=== PATIENT | male | born 1980 | race Caucasian/White ===

== ENCOUNTER 2023-04-13 13:17 | Emergency (ER) | payer SELFPAY ==
[2023-04-13] VITALS (30 sets, daily range): BP systolic 130–168; BP diastolic 88–93; PULSE 70–85; RESP 12–30; TEMP 36.5; O2SAT 95–98; BMI 30.1
--- NOTE | 2023-04-13 13:36 | XR_ITS ---
The [address] [address] Patient Name: RICK BAY MRN: [id number] date: 1980 Sex: M Assigned Patient Location: ER Current Patient Location: ED.MAIN Accession/Order Number: [id number] Exam Date: 04/13/2023 13:42 Report Date: 04/13/2023 14:26 At the request of: CECILLE COHEN Procedure: XR chest 1V EXAMINATION: XR chest 1V HISTORY: CP ; chest pain COMPARISON: XR chest 11/05/2012 FINDINGS: LUNGS: 9 mm opacity within lateral left lung base suspected represent a nodule. Expanded lungs. VASCULATURE: No increased pulmonary vasculature. PLEURA: No pneumothorax, effusion, or pleural thickening. CARDIAC: No cardiomegaly or cardiac silhouette abnormality. MEDIASTINUM: No visible mass or adenopathy. BONES: No fracture or visible bone lesion. OTHER: Negative. XR/XR chest 1V IMPRESSION: 1. There is a 9 mm nodule versus focal infiltrate versus nipple shadow artifact within lateral left lung base. Consider follow-up PA/lateral chest x-ray with full lung expansion. If finding persists consider CT chest for further evaluation. 2. No convincing acute cardiopulmonary process. Electronically authenticated by: FABIEN BATES Date: 04/13/2023 14:26
--- NOTE | 2023-04-13 13:36 | ECG_ITS ---
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
--- NOTE | 2023-04-13 13:37 | ED_ITS ---
HPI - Chest Pain General Chief Complaint: Chest Pain Stated Complaint: Chest pain Time Seen by Provider: 04/13/23 13:33 Source: patient Mode of arrival: walk-in Limitations: no limitations History of Present Illness HPI narrative: 42 year old male presents to the ED for left-sided chest pain. 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 It has been intermittent, lasts 1-2 minutes. States his left arm became numb with one of the episodes. Denies fever, chills, dizziness, weakness. Denies SOB. The pain is worse with inspiration. Denies neck and back pain. Quality: Reports tightness Exacerbating factors: Reports inspiration and palpation Context: Denies recent illness, recent surgery, recent immobilization or recent travel Risk Factors Coronary artery disease risk factors: smoking history Related Data Allergies Allergy/AdvReac Type Severity Reaction Status Date / Time No Known Drug Allergies Allergy Verified 04/13/23 13:27 Review of Systems ROS Constitutional Denies: fever or chills Ears, nose, mouth, and throat Denies: throat pain or neck pain Cardiovascular Reports: chest pain; Denies: palpitations, edema, swelling of feet/ankles, lightheadedness or shortness of breath with exertion Respiratory Denies: shortness of breath or cough Gastrointestinal Denies: abdominal pain, nausea, vomiting or diarrhea Musculoskeletal Denies: back pain or neck pain Integumentary/Breast Denies: rash or itching Neurological Reports: numbness in extremities; Denies: headache, weakness in extremities, lack of coordination, dizziness, vertigo, confusion, slurred speech or difficulty communicating thoughts PFSH PFSH Social History Smoking status: Current every day smoker Exam Constitutional Vital Signs, click to edit/add: Last Vital Signs Temp 97.7 F 04/13/23 13:24 Pulse 71 04/13/23 15:40 Resp 15 04/13/23 15:40 BP 130/91 04/13/23 15:00 Pulse Ox 97 04/13/23 15:40 O2 Del Method Room Air 04/13/23 13:24 HENMT Nose: external nose normal External auditory canal: EACs normal Mouth: oral and palatal mucosa normal Eye Common normals: conjunctivae normal and no scleral icterus Neck & C-Spine Common normals: supple Chest Common normals: inspection of chest normal; palpation of chest abnormal (Mild tenderness to left upper chest.) Chest: symmetrical chest wall rise Respiratory Common normals: normal respiratory effort, no retractions, no use of accessory muscles and clear to auscultation bilaterally Effort & inspection: able to speak in complete sentences and symmetric chest movement Cardio Common normals: regular rate and regular rhythm Back & Pelvis Thoracic spine/upper back: normal to inspection Neuro Common normals: oriented x3 Sensorium/orientation: awake and alert Speech: speech normal Motor exam: strength 5/5 throughout Course Course Hospital Course: HEART Score for Major Cardiac Events from [email or web address] on 04/13/2023 All calculations should be rechecked by clinician prior to use RESULT SUMMARY: 2 points Low Score (0-3 points) Risk of MACE of 0.9-1.7%. If troponin is positive, many experts recommend further workup and admission even with a low HEART Score. INPUTS: History ?> 0 = Slightly suspicious EKG ?> 0 = Normal Age ?> 0 = <45 Risk factors ?> 1 = 1-2 risk factors Initial troponin ?> 1 = 1?3? normal limit Vital Signs Vital signs: Vital Signs Temperature 97.7 F 04/13/23 13:24 Pulse Rate 81 04/13/23 13:24 Respiratory Rate 20 04/13/23 13:24 Blood Pressure 168/93 H 04/13/23 13:24 Pulse Oximetry 97 04/13/23 13:24 Oxygen Delivery Method Room Air 04/13/23 13:24 Temperature 97.7 F 04/13/23 13:24 Pulse Rate 71 04/13/23 15:40 Respiratory Rate 15 04/13/23 15:40 Blood Pressure 130/91 04/13/23 15:00 Pulse Oximetry 97 04/13/23 15:40 Oxygen Delivery Method Room Air 04/13/23 13:24 MDM - Chest Pain MDM Narrative Medical decision making narrative: EKG showed NSR. Initial troponin was 30.4, repeat 64.8. Findings were discussed with the patient and his family member. He was given 324 mg asa. I spoke with Dr. Rushing; he recommended transfer to [facility] for further evaluation and treatment due to the limited cardiac services available here at [place]. I spoke with Dr. Estes at [facility]. He agreed to accept the patient for transfer to the facility for further evaluation and treatment. The patient was in agreement with the transfer. The patient was started on a Heparin drip with the ACS protocol. Differential Diagnosis Differential diagnosis: Likely stable angina, unstable angina pectoris, atypical chest pain, st elevation myocardial infarction and chest pain Medical Records Data Attestation: I reviewed the patient's medical records. Lab Data Attestation: I reviewed the patient's lab results. Labs: Lab Results 04/13/23 04/13/23 04/13/23 Range/Units 13:36 15:15 17:00 WBC 11.0 (4.0-11.0) 10^3/uL RBC 5.36 (4.70-6.10) 10^6/uL Hgb 16.8 (14.0-18.0) g/dL Hct 47.0 (42.0-54.0) % MCV 87.7 (80.0-94.0) fL MCH 31.3 (25.9-34.0) pg MCHC 35.7 H (29.9-35.2) g/dL RDW 12.7 (11.0-15.0) % Plt Count 260 (150-450) 10^3/uL MPV 9.8 (9.5-13.5) fL Neut % (Auto) 59.2 (43.0-75.0) % Lymph % (Auto) 32.0 (20.5-60.0) % [place] % (Auto) 6.8 (1.7-12.0) % Eos % (Auto) 1.0 (0.9-7.0) % Baso % (Auto) 0.6 (0.2-2.0) % Neut # (Auto) 6.5 (1.4-6.5) 10^3/uL Lymph # (Auto) 3.5 (1.2-3.8) 10^3/uL [place] # (Auto) 0.7 (0.3-0.8) 10^3/uL Eos # (Auto) 0.1 (0.0-0.7) 10^3/uL Baso # (Auto) 0.1 (0.0-0.1) 10^3/uL Abs Immat Gran (auto) 0.04 H (0.00-0.03) 10^3/uL Imm/Tot Granulo (auto) 0.4 (0.0-0.5) % PT 9.9 (9.0-11.6) sec INR 0.93 APTT 29.3 (22.3-36.2) sec Sodium 135 L (136-145) mmol/L Potassium 3.7 (3.5-5.1) mmol/L Chloride 98 (98-107) mmol/L Carbon Dioxide 27.2 (21.0-32.0) mmol/L Anion Gap 13.5 BUN 8.0 (7.0-18.0) mg/dL Creatinine 0.82 (0.70-1.30) mg/dL Est GFR ( Amer) >60 (>=60) Est GFR (Non-Af Amer) >60 (>=60) BUN/Creatinine Ratio 9.8 Glucose 244 H (74-106) mg/dL Calcium 8.8 (8.5-10.1) mg/dL Troponin I High Sens 30.4 64.8 83.7 H* (4.0-76.1) pg/mL ECG Data Attestation: ?I have reviewed the pertinent ECG results. (EKG was reviewed by the attending physician. It showed sinus rhythm at a rate of 74. No acute ST segment changes. ) Interpretation: Measurements Intervals [place] Rate: 74 P: 12 MA: 174 QRS: 81 QRSD: 84 T: 21 QT: 368 QTc: 395 Interpretive Statements 1100 Sinus rhythm 9110 normal ECG No previous ECG available for comparison Critical Care Time Critical Care Time Critical Care Time: Yes Total Critical Care Time: 35 Attestation: Due to the high probability of sudden and clinically significant deterioration in the patient's condition he required the highest level of my preparedness to intervene urgently I provided critical care time including documentation time, medication orders and management, reevaluation, vital sign assessment, ordering and reviewing of lab tests, ordering and reviewing of x-rays studies, and admission orders. Discharge Plan Discharge Chief Complaint: Chest Pain Clinical Impression: Elevated troponin, Chest pain Patient Disposition: [facility] Time of Disposition Decision: 17:20 Discharge Location: [facility] Condition: Good Mode of Transportation: EMS
[2023-04-13] MEDS: ASPIRIN 81 MG TAB.CHEW 324 MG PO (13:45)
[2023-04-13 14:04] LABS: Basophils Absolute Auto 0.1 10^3/uL (0.0-0.1); Basophils Percent Auto 0.6 % (0.2-2.0); Eosinophils Absolute Auto 0.1 10^3/uL (0.0-0.7); Hemoglobin 16.8 g/dL (14.0-18.0); Immature Granulocytes Abs Auto 0.04 10^3/uL (0.00-0.03); Immature Granulocytes Pct Auto 0.4 % (0.0-0.5); Lymphocytes Absolute Auto 3.5 10^3/uL (1.2-3.8); Mean Corpuscular HGB Conc 35.7 g/dL (29.9-35.2); Mean Corpuscular Hemoglobin 31.3 pg (25.9-34.0); Mean Corpuscular Volume 87.7 fL (80.0-94.0); Mean Platelet Volume 9.8 fL (9.5-13.5); Monocytes Absolute Auto 0.7 10^3/uL (0.3-0.8); Monocytes Percent Auto 6.8 % (1.7-12.0); Neutrophils Absolute Auto 6.5 10^3/uL (1.4-6.5); Neutrophils Percent Auto 59.2 % (43.0-75.0); Platelet Count 260 10^3/uL (150-450); Red Blood Count 5.36 10^6/uL (4.70-6.10); Red Cell Distribution Width 12.7 % (11.0-15.0)
[2023-04-13 14:14] LABS: Anion Gap 13.5; BUN Creatinine Ratio 9.8; Calcium 8.8 mg/dL (8.5-10.1); Carbon Dioxide 27.2 mmol/L (21.0-32.0); Chloride 98 mmol/L (98-107); Estimated GFR (African America >60 (>=60); Estimated GFR (Non-African Ame >60 (>=60); Glucose 244 mg/dL (74-106); Potassium 3.7 mmol/L (3.5-5.1); Sodium 135 mmol/L (136-145); Troponin I High Sensitivity 30.4 pg/mL (4.0-76.1)
[2023-04-13 14:18] LABS: INR 0.93; Prothrombin Time 9.9 sec (9.0-11.6)
--- NOTE | 2023-04-13 14:31 | XR_ITS ---
The [address] [address] Patient Name: RICK BAY MRN: [id number] date: 1980 Sex: M Assigned Patient Location: ER Current Patient Location: ER Accession/Order Number: [id number] Exam Date: 04/13/2023 14:45 Report Date: 04/13/2023 15:13 At the request of: CECILLE COHEN Procedure: XR chest 2V EXAMINATION: XR chest 2V HISTORY: CP ; left lung nodule versus artifact COMPARISON: No relevant comparison available. FINDINGS: LUNGS: No significant pulmonary parenchymal abnormalities. VASCULATURE: No increased pulmonary vasculature. PLEURA: No pneumothorax, effusion, or pleural thickening. CARDIAC: No cardiomegaly or cardiac silhouette abnormality. MEDIASTINUM: No visible mass or adenopathy. BONES: No fracture or visible bone lesion. OTHER: Negative. XR/XR chest 2V IMPRESSION: 1. No acute cardiopulmonary process or suspicious findings. 2. Previously seen left lung base opacity representing a nipple shadow artifact. Electronically authenticated by: FABIEN BATES Date: 04/13/2023 15:13
[2023-04-13 15:47] LABS: Troponin I High Sensitivity 64.8 pg/mL (4.0-76.1)
[2023-04-13] MEDS: HEPARIN SODIUM,PORCINE/D5W 25,000 UNIT/500 ML IV.SOLN 20 UNIT IV (17:07)
[2023-04-13] MEDS: HEPARIN SODIUM (PORCINE) 5,000 UNIT/ML VIAL 4000 UNIT IV (17:09)
[2023-04-13 17:24] LABS: Partial Thromboplastin Time 29.3 sec (22.3-36.2)
[2023-04-13 17:34] LABS: Troponin I High Sensitivity 83.7 pg/mL (4.0-76.1)
== END 2023-04-13 20:00 | disposition short-term general hospital (02) ==
PROVIDERS: Nurse Practitioner Family; Emergency Provider Emergency Medicine
DX: R07.9 Chest pain, unspecified (principal); R77.8 Other specified abnormalities of plasma proteins; F17.200 Nicotine dependence, unspecified, uncomplicated
CPT/HCPCS: 36415; 71045; 71046; 80048; 84484; 85025; 85610; 85730; 93005; 96374; 99285; J1644

== ENCOUNTER 2023-08-08 09:15 | Emergency (ER) | payer SELFPAY ==
[2023-08-08] VITALS (23 sets, daily range): BP systolic 102–145; BP diastolic 71–94; PULSE 61–79; O2SAT 97–99; BMI 27.3
--- NOTE | 2023-08-08 09:39 | ED_ITS ---
HPI - Chest Pain General Chief Complaint: Chest Pain Stated Complaint: CHEST PAIN/ PATIENT HAS STENT Time Seen by Provider: 08/08/23 09:39 Source: patient and family Mode of arrival: walk-in Limitations: no limitations History of Present Illness HPI narrative: This patient is here complaining of chest pain. Most of the symptoms were on Tuesday. He spent most today at rest fishing yesterday. He is little bit wor ried because he had coronary stenting recently this year. He is actually scheduled to see his vacuum plastic forming machine operator tomorrow morning on a routine visit. He has completely stopped smoking. He has been completely compliant with all his antiplatelet medication and other meds as noted on his record. He does not have nausea vomiting or diaphoresis. He says it feels similar to when he had his heart attack. He took 1 nitroglycerin on Tuesday but none on Tuesday and none on Tuesday or today. He does not have any swelling of his legs. He says taking a deep breath seems to make the pain worse. He has not had purulent sputum or fever. No swelling of his legs. Related Data Allergies Allergy/AdvReac Type Severity Reaction Status Date / Time No Known Drug Allergies Allergy Verified 04/13/23 13:27 [facility] Social History Smoking status: Current every day smoker Exam Narrative Exam Narrative: Awake alert seen shortly after arrival resting EKG did not show any evidence of ischemia or injury. He did indicate that his cardiac cath showed 95% blockage but no other lesions in his coronary system. ENT examination shows no swelling no conjunctivitis no pallor or scleral icterus. His lungs are completely clear with no wheeze rales rhonchi. There is no pleural or pericardial rub. Heart sounds are normal with no S3-S4 clicks rubs or murmur. His legs show no swelling DVT or phlebitis. Constitutional Vital Signs, click to edit/add: Last Vital Signs Pulse 76 08/08/23 09:17 Resp 18 08/08/23 09:17 BP 145/94 H 08/08/23 09:17 Pulse Ox 97 08/08/23 09:17 Course Vital Signs Vital signs: Vital Signs Pulse Rate 76 08/08/23 09:17 Respiratory Rate 18 08/08/23 09:17 Blood Pressure 145/94 H 08/08/23 09:17 Pulse Oximetry 97 08/08/23 09:17 Pulse Rate 76 08/08/23 09:17 Respiratory Rate 18 08/08/23 09:17 Blood Pressure 145/94 H 08/08/23 09:17 Pulse Oximetry 97 08/08/23 09:17 MDM - Chest Pain MDM Narrative Medical decision making narrative: This patient who recently had a cardiac stent placed here with discomfort since Tuesday, nearly 48 to 72 hours ago. His initial EKG was stable with no ischemic or ST segment changes. Nonetheless with his history we will work him up. Fortunately serial troponins are both negative. Chest x-ray is negative and his overall laboratory testing was stable. He has an appointment to see his vacuum plastic forming machine operator tomorrow. Today's discomfort does not seem to be anginal in episode or character. He feels better at the time of discharge. Will be advised see his cardiac doctor tomorrow Discharge Plan Discharge Stand Alone Forms: Portal Instructions Chief Complaint: Chest Pain Clinical Impression: Chest pain Patient Disposition: Home, Self-Care Time of Disposition Decision: 12:51 Print Language: Chadian Additional Instructions: Continue present medications. Referrals: Physician,Non-Staff, MD [Primary Care Provider] - 1 week
--- NOTE | 2023-08-08 09:41 | XR_ITS ---
The [address] [address] Patient Name: RICK BAY MRN: [id number] date: 1980 Sex: M Assigned Patient Location: ER Current Patient Location: ER Accession/Order Number: [id number] Exam Date: 08/08/2023 09:48 Report Date: 08/08/2023 10:03 At the request of: MELISSA VALERA Procedure: XR chest 1V EXAMINATION: XR chest 1V HISTORY: Chest pain COMPARISON: XR chest 04/13/2023 FINDINGS: LUNGS: No significant pulmonary parenchymal abnormalities. VASCULATURE: No increased pulmonary vasculature. PLEURA: No pneumothorax, effusion, or pleural thickening. CARDIAC: No cardiomegaly or cardiac silhouette abnormality. MEDIASTINUM: No visible mass or adenopathy. BONES: No fracture or visible bone lesion. OTHER: Negative. XR/XR chest 1V IMPRESSION: 1. No acute cardiopulmonary process. Electronically authenticated by: FABIEN BATES Date: 08/08/2023 10:03
[2023-08-08] MEDS: NITROGLYCERIN 0.4 MG BOTTLE 0.400000000000000022 MG PO (09:53)
[2023-08-08] MEDS: MORPHINE SULFATE 2 MG/ML SYRINGE IV (09:54)
[2023-08-08 10:05] LABS: Basophils Absolute Auto 0.1 10^3/uL (0.0-0.1); Basophils Percent Auto 0.4 % (0.2-2.0); Eosinophils Absolute Auto 0.2 10^3/uL (0.0-0.7); Eosinophils Percent Auto 1.1 % (0.9-7.0); Hematocrit 44.6 % (42.0-54.0); Hemoglobin 15.5 g/dL (14.0-18.0); Immature Granulocytes Abs Auto 0.06 10^3/uL (0.00-0.03); Immature Granulocytes Pct Auto 0.4 % (0.0-0.5); Lymphocytes Absolute Auto 3.1 10^3/uL (1.2-3.8); Lymphocytes Percent Auto 20.3 % (20.5-60.0); Mean Corpuscular HGB Conc 34.8 g/dL (29.9-35.2); Mean Corpuscular Hemoglobin 31.3 pg (25.9-34.0); Mean Corpuscular Volume 90.1 fL (80.0-94.0); Mean Platelet Volume 9.6 fL (9.5-13.5); Monocytes Percent Auto 6.2 % (1.7-12.0); Neutrophils Percent Auto 71.6 % (43.0-75.0); Platelet Count 310 10^3/uL (150-450); Red Blood Count 4.95 10^6/uL (4.70-6.10); Red Cell Distribution Width 13.1 % (11.0-15.0); White Blood Count 15.4 10^3/uL (4.0-11.0)
[2023-08-08 10:23] LABS: D Dimer 0.22 mg/L FEU (<=0.59); INR 0.93; Prothrombin Time 9.9 sec (9.0-11.6)
[2023-08-08 10:29] LABS: Alanine Aminotransferase 38 U/L (16-63); Albumin Globulin Ratio 1.1; Albumin Level 3.9 g/dL (3.4-5.0); Alkaline Phosphatase 95 U/L (46-116); Anion Gap 10.7; Aspartate Amino Transferase 17 U/L (15-37); Bilirubin Total 0.4 mg/dL (0.2-1.0); Calcium 8.8 mg/dL (8.5-10.1); Carbon Dioxide 26.4 mmol/L (21.0-32.0); Chloride 102 mmol/L (98-107); Estimated GFR (African America >60 (>=60); Estimated GFR (Non-African Ame >60 (>=60); Globulin 3.7 g/dL; Glucose 143 mg/dL (74-106); Potassium 4.1 mmol/L (3.5-5.1); Sodium 135 mmol/L (136-145); Total Protein 7.6 g/dL (6.4-8.2); Troponin I High Sensitivity 6.8 pg/mL (4.0-76.1)
--- NOTE | 2023-08-08 11:49 | ECG_ITS ---
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
== END 2023-08-08 13:16 | disposition home or self-care (01) ==
PROVIDERS: Emergency Provider Emergency Medicine Emergency Medical Services
DX: R07.9 Chest pain, unspecified (principal); Z95.5 Presence of coronary angioplasty implant and graft; Z87.891 Personal history of nicotine dependence
CPT/HCPCS: 36415; 71045; 80053; 83880; 84484; 85025; 85378; 85610; 93005; 96374; 99285; J2270

== ENCOUNTER 2024-04-10 10:13 | Emergency (ER) | payer OTHER, SELFPAY ==
[2024-04-10 10:46] VITALS: BP 151/82; PULSE 64; TEMP 36.6; O2SAT 98; BMI 27.8
--- OUTSIDE RECORDS SUMMARY | 2024-04-10 10:49 | XMS_ITS | CCD ---
Author Organization [facility] Care Team Providers Care Stereo Operator Name Role Phone DR SACHA DOCTOR Primary Care Unavailable JONH LARSON Attending Unavailable JONH LARSON Consulting Unavailable JONH LARSON Admitting Unavailable NO FAMILY, PHYSICIAN Primary Care Provider MD Ramos Mane Admit Provider MD Ahsan Kramer Other Provider MD Yasemin Wilkinson Attending Provider [phone] NO FAMILY, PHYSICIAN Primary Care Unavailable Ramos Pappas Admitting Unavailable Ahsan Kramer Consulting Yasemin Tom Attending Unavailable NO PCP, NO PCP Primary Care Unavailable NO PCP, NO PCP Primary Care Unavailable JARED BUCKLEY Attending Unavailable Medications Current Medications Medication Drug Class(es) Dates Sig (Normalized) Sig (Original) aspirin 81 mg delayed release oral tablet (4 sources) Platelet Aggregation Inhibitor, Nonsteroidal Anti-inflammatory Drug Start: 04-15-2023 End: 08-09-2023 take 1 tablet by mouth once daily Aspirin 81 mg tablet,delayed release (/EC) Active 81 MG PO Daily 90 90 August 09, 2023 11:09am atorvastatin 80 mg oral tablet (6 sources) HMG-CoA Reductase Inhibitor Start: 04-15-2023 End: 08-09-2023 take 1 tablet by mouth once daily in the evening Atorvastatin 80 mg tablet Active 80 MG PO Every evening August 09, 2023 11:10am Must keep pending appointment for further refills. Blood Sugar Diagnostic (2 sources) Start: 04-15-2023 Blood Sugar Diagnostic Active STRIP 100 April 15, 2023 1:00am As Directed Start: 04-15-2023 Blood Sugar Di agnostic Active STRIP 100 April 15, 2023 12:00am As Directed Blood-Glucose Meter (2 sources) Start: 04-15-2023 Blood-Glucose Meter Active KIT April 15, 2023 1:00am As Directed Start: 04-15-2023 Blood-Glucose Meter Active KIT April 15, 2023 12:00am As Directed Blood-Glucose Meter kit (1 source) Start: 04-15-2023 Blood-Glucose Meter kit Active KIT April 15, 2023 12:00am As Directed clopidogrel 75 mg oral tablet (10 sources) P2Y12 Platelet Inhibitor Start: 08-09-2023 take 1 tablet by mouth once daily Clopidogrel (Plavix) 75 mg tablet Active 75 MG PO Daily August 09, 2023 11:10am Start: 07-08-2023 End: 08-09-2023 Clopidogrel (Plavix) 75 mg t ablet Discontinued 75 MG PO .COMPLEX 30 July 08, 2023 8:48am August 09, 2023 11:13am Must keep 08/08 appointment for further refills. Start: 04-15-2023 End: 07-08-2023 Clopidogrel (Plavix) 75 mg t ablet Discontinued 75 MG PO .COMPLEX 37 May 13, 2023 11:45am July 08, 2023 8:48am 75 mg orally, take 600 mg 8 tablets on day one then 75 mg 1 tablet daily there after; glipiZIDE 5 mg oral tablet (3 sources) Sulfonylurea Start: 04-15-2023 take 1 tablet by mouth once daily Glipizide 5 mg tablet Active 5 MG PO Daily April 15, 2023 12:00am 24 hr isosorbide mononitrate 30 mg extended release oral tablet (1 source) Nitrate Vasodilator Start: 08-09-2023 take 1 tablet by mouth once daily, then take 1 tablet by mouth every twenty-four hours Isosorbide Mononitrate 30 mg tablet extended release 24 hr Active 30 MG PO Daily August 08, 2023 11:00pm lisinopril 5 mg oral tablet (6 sources) Angiotensin Converting Enzyme Inhibitor Start: 08-09-2023 take 1 tablet by mouth once daily Lisinopril 5 mg tablet Active 5 MG PO Daily August 09, 2023 11:11am Start: 07-08-2023 End: 08-09-2023 take [id number] tablet by mouth once daily Lisinopril 5 mg tablet Discontinued 5 MG PO Daily July 08, 2023 8:47am August 09, 2023 11:13am Must keep 18 appt for further refills Start: 04-15-2023 End: 07-08-2023 take 1 tablet by mouth once daily Lisinopril 5 mg Tabl et Discontinued 5 MG PO Daily April 15, 2023 12:00am July 08, 2023 8:47am metFORMIN hydrochloride 1000 mg oral tablet (3 sources) Biguanide Start: 04-15-2023 take 1 tablet by mouth twice daily Metformin 1,000 mg tablet Active 1000 MG PO Twice daily April 15, 2023 12:00am 24 hr metoprolol succinate 50 mg extended release oral tablet (6 sources) beta-Adrenergic Almaz Start: 07-08-2023 Metoprolol Succinate Active 50 MG PO Daily July 08, 2023 9:47am Must keep 18 appointment for further refills. Start: 04-15-2023 End: 08-09-2023 take 1 tablet by mouth once daily Metoprolol Succinate 50 mg tablet extended release 24 hr Active 50 MG PO Daily 90 August 09, 2023 11:11am nitroglycerin 0.4 mg sublingual tablet (3 sources) Nitrate Vasodilator Start: 04-15-2023 Nitroglyce rin 0.4 mg Tablet, Sublingual Active 0.4 MG SUBLINGUAL Q5M as needed for Chest Pain April 15, 2023 12:00am Completed/Discontinued Medications Medication Drug Class(es) Dates Sig (Normalized) Sig (Original) 24 hr nicotine 0.875 mg/hr transdermal system (3 sources) Cholinergic Nicotinic Agonist Start: 04-15-2023 End: 08-09-2023 apply 1 dose transdermal route every twenty-four hours Nicotine 21 mg/24 hr Patch 24 Hour Discontinued 21 MG TRANSDERML Daily April 15, 2023 12:00am August 09, 2023 9:49am Start: 04-15-2023 End: 08-09-2023 Nicotine Discontinued 21 MG TRANSDERML Daily April 15, 2023 1:00am August 09, 2023 10:49am ticagrelor 90 mg oral tablet (5 sources) Start: 04-15-2023 End: 05-13-2023 take 1 tablet by mouth twice daily Ticagrelor (Brilinta) 90 mg tablet Discontinued 90 MG PO Twice daily 60 30 May 12, 2023 11:17am May 13, 2023 11:40am Problems Active Problems Problem Classification Problem Date Documented Da te Episodic/Chronic Acute myocardial infarction (5 sources) Myocardial infarction; Translations: [Non-ST elevation (NSTEMI) myocardial infarction] Onset: 04-13-2023 04-14-2023 Chronic Coronary atherosclerosis and other heart disease (2 sources) Coronary arteriosclerosis; Translations: [Atherosclerotic heart disease of [place] coronary artery with unspecified angina pectoris] 08-09-2023 Chronic Coronary atherosclerosis and other heart disease (2 sources) Patient post percutaneous transluminal coronary angioplasty; Translations: [Coronary angioplasty status] 08-09-2023 Episodic Diabetes mellitus without complication (6 sources) Type 2 diabetes mellitus; Translations: [Type 2 diabetes mellitus without complications] Onset: 04-13-2023 04-14-2023 Chronic Disorders of lipid metabolism (6 sources) Mixed hyperlipidemia; Translations: [Mixed hyperlipidemia] Onset: 04-13-2023 04-14-2023 Chronic Disorders of teeth and jaw (5 sources) Other specified disorders of teeth and supporting structures; Translations: [Periapical abscess without sinus] Onset: 10-27-2020 Episodic Essential hypertension (6 sources) Essential hypertension; Translations: [Essential (primary) hypertension] Onset: 04-13-2023 04-14-2023 Chronic Nonspecific chest pain (2 sources) Chest pain, unspecified; Translations: [Chest pain] Onset: 01-02-2024 Episodic Other lower respiratory disease (1 source) Shortness of breath; Translations: [Shortness of breath] Onset: 01-02-2024 Episodic Other lower respiratory disease (1 source) Shortness of breath Onset: 01-02-2024 Episodic Residual codes; unclassified (3 sources) Tobacco user; Translations: [Tobacco use] 04-14-2023 Episodic Residual codes; unclassified (2 sources) Tobacco use; Translations: [Tobacco use disorder] Onset: 04-13-2023 04-15-2023 Episodic Unclassified (1 source) Acute cough; Translations: [Acute cough] Onset: 11-11-2024 Unclassified (2 sources) Rash Onset: 06-06-2023 Past or Other Problems Problem Classification Problem Date Documented Da te Episodic/Chronic Other skin disorders (1 source) Rash and other nonspecific skin eruption; Translations: [Rash and other nonspecific skin eruption] Onset: 06-06-2023 Episodic Results Test Name Value Interpretation Reference Range Facility CBC AND AUTO DIFFon 01-02-20 24 ABSOLUTE BASOPHIL 0.0 X10E9/L Normal 0.0-0.2 [facility] Comment on above: Performed By: #### Sabrina ANN, 02629-5, CBCA #### [facility] ([id number]) [address] [place] [address] 79998 ABSOLUTE NEUTROPHIL 9.4 X10E9/L High 1.5-6.6 [facility] Comment on above: Performed By: #### Sabrina ANN 27815-9, CBCA #### [facility] ([id number]) [address] [place] [address] 08564 Basophils/100 WBC (Bld) 0.2 % Normal [facility] Comment on above: Performed By: #### Sabrina ANN, 30141-5, CBCA #### [facility] ([id number]) [address] [place] [address] 92276 Eosinophils (Bld) [#/Vol] 0.1 10*3/uL Normal 0.0-0.[address] [facility] Comment on above: Performed By: #### Sabrina ANN 83509-2, CBCA #### [facility] ([id number]) [address] [place] [address] 97866 Eosinophils/100 WBC (Bld) 0.8 % Normal [facility] Comment on above: Performed By: #### Sabrina ANN, 37712-6, CBCA #### [facility] ([id number]) [address] [place] [address] 23589 Erythrocyte distribution width (RBC) [Ratio] 13.5 % Normal 11.5-15.[address] [facility] Comment on above: Performed By: #### C SETH, 92391-0, CBCA #### [facility] ([id number]) [address] [place] [address] 59606 Hematocrit (Bld) [Volume fraction] 44.9 % Normal 39-[address] [facility] Comment on above: Performed By: #### C SETH, 39311-6, CBCA #### [facility] ([id number]) [address] [place] [address] 09596 Hemoglobin (Bld) [Mass/Vol] 16.1 g/dL Normal 13.0-17.[address] [facility] Comment on above: Performed By: #### C SETH, 73041-9, CBCA #### [facility] ([id number]) [address] [place] [address] 17016 Lymphocytes (Bld) [#/Vol] 3.2 10*3/uL Normal 1.0-3.[address] [facility] Comment on above: Performed By: #### C SETH, 56512-6, CBCA #### [facility] ([id number]) [address] [place] [address] 76768 Lymphocytes/100 WBC (Bld) 23.4 % Normal [facility] Comment on above: Performed By: #### C SETH, 27365-8, CBCA #### [facility] ([id number]) [address] [place] [address] 40364 MCH (RBC) [Entitic mass] 31.8 pg Normal 27-[address] [facility] Comment on above: Performed By: #### C SETH, 89916-0, CBCA #### [facility] ([id number]) [address] [place] [address] 78841 MCHC (RBC) [Mass/Vol] 35.8 g/dL Normal 32-36 [facility] Comment on above: Performed By: #### C SETH, 78991-9, CBCA #### [facility] ([id number]) [address] [place] [address] 64172 MCV (RBC) [Entitic vol] 89 fL Normal 80-[address] [facility] Comment on above: Performed By: #### C SETH, 86359-5, CBCA #### [facility] ([id number]) [address] [place] [address] 66422 Monocytes (Bld) [#/Vol] 1.0 10*3/uL High 0-0.[address] [facility] Comment on above: Performed By: #### C SETH, 70890-5, CBCA #### [facility] ([id number]) [address] [place] [address] 49809 Monocytes/100 WBC (Bld) 7.5 % Normal [facility] Comment on above: Performed By: #### Sabrina ANN, 67713-9, CBCA #### [facility] ([id number]) [address] [place] [address] 20241 Neutrophils/100 WBC (Bld) 68.1 % Normal [facility] Comment on above: Performed By: #### Sabrina ANN, 48500-0, CBCA #### [facility] ([id number]) [address] [place] [address] 66546 Platelet mean volume (Bld) [Entitic vol] 7.7 fL Normal 7-[address] [facility] Comment on above: Performed By: #### Sabrina ANN, 04715-6, CBCA #### [facility] ([id number]) [address] [place] [address] 73571 Platelets (Bld) [#/Vol] 295 10*3/uL Normal 150-[address] [facility] Comment on above: Performed By: #### Sabrina ANN, 78070-0, CBCA #### [facility] ([id number]) [address] [place] [address] 99210 RBC COUNT 5.05 X10E12/L Normal 4.10-5.[address] [facility] Comment on above: Performed By: #### C SETH, 63484-1, CBCA #### [facility] ([id number]) [address] [place] [address] 73488 WBC (Bld) [#/Vol] 13.8 10*3/uL High 4.0-11.0 [facility] Comment on above: Performed By: #### C SETH, 18026-8, CBCA #### [facility] ([id number]) [address] [place] [address] 83552 COMPREHENSIVE METABOLIC PANE [facility] 01-02-2024 Albumin [Mass/Vol] 4.8 g/dL Normal 3.2-5.3 [facility] Comment on above: Performed By: #### C SETH, 46926-6, CBCA #### [facility] ([id number]) [address] [place] [address] 65121 ALP [Catalytic activity/Vol] 63 U/L Normal 39-[address] [facility] Comment on above: Performed By: #### C SETH, 67277-4, CBCA #### [facility] ([id number]) [address] [place] [address] 50112 ALT [Catalytic activity/Vol] 32 U/L Normal 0-[address] [facility] Comment on above: Performed By: #### C SETH, 85017-1, CBCA #### [facility] ([id number]) [address] [place] [address] 68163 Anion gap [Moles/Vol] 11 mmol/L Normal 5-15 [facility] Comment on above: Performed By: #### Sabrina ANN, 56327-4, CBCA #### [facility] ([id number]) [address] [place] [address] 16065 AST [Catalytic activity/Vol] 27 U/L Normal 0-[address] [facility] Comment on above: Performed By: #### C SETH, 32527-0, CBCA #### [facility] ([id number]) [address] [place] [address] 06665 Bilirubin [Mass/Vol] 0.8 mg/dL Normal 0.3-1.2 [facility] Comment on above: Performed By: #### C SETH, 46435-4, CBCA #### [facility] ([id number]) [address] [place] [address] 11369 Calcium [Mass/Vol] 9.3 mg/dL Normal 8.5-10.5 [facility] Comment on above: Performed By: #### C SETH, 88481-1, CBCA #### [facility] ([id number]) [address] [place] [address] [place] [address] Chloride [Moles/Vol] 101 mmol/L Normal 98-109 [facility] Comment on above: Performed By: #### C SETH, 56565-5, CBCA #### [facility] ([id number]) [address] [place] [address] 65633 CO2 [Moles/Vol] 25 mmol/L Normal 22-[address] [facility] Comment on above: Performed By: #### C SETH, 55209-7, CBCA #### [facility] ([id number]) [address] [place] [address] 48162 Creatinine [Mass/Vol] 0.74 mg/dL Normal 0.70-1.20 [facility] Comment on above: Result Comment: METH OD TRACEABLE TO IDMS STANDARD Performed By: #### C SETH, 11337-0, CBCA #### [facility] ([id number]) [address] [place] [address] eGFR (CKD-EPI) NON-RACE DEPENDENT >90 Normal >[address] [facility] Comment on above: Result Comment: Reported eGFR is based on the CKD-EPI 2020 equation that does not use a race coefficient. Performed By: #### C SETH, 37349-0, CBCA #### [facility] ([id number]) [address] [place] [address] 72423 Glucose [Mass/Vol] 122 mg/dL High 65-99 [facility] Comment on above: Performed By: #### C SETH, 90540-6, CBCA #### [facility] ([id number]) [address] [place] [address] 63666 Potassium [Moles/Vol] 3.6 mmol/L Normal 3.5-5.0 [facility] Comment on above: Performed By: #### C SETH, 82611-3, CBCA #### [facility] ([id number]) [address] [place] [address] 13212 Protein [Mass/Vol] 7.6 g/dL Normal 6.0-8.0 [facility] Comment on above: Performed By: #### C SETH, 61002-1, CBCA #### [facility] ([id number]) [address] [place] [address] 62456 Sodium [Moles/Vol] 137 mmol/L Normal 134-146 [facility] Comment on above: Performed By: #### C SETH, 59606-7, CBCA #### [facility] ([id number]) [address] [place] [address] 93868 Urea nitrogen [Mass/Vol] 13 mg/dL Normal 5-[address] [facility] Comment on above: Performed By: #### C SETH, 90436-2, CBCA #### [facility] ([id number]) [address] [place] [address] ABDOMEN AND PELVIS W CONT on 01-02-2024 CT ABDOMEN AND PELVIS W CONT CT ABDOMEN AND PELVIS W CONT STUDY: CT ABDOMEN AND PELVIS W CONT INDICATION: Abdominal pain, acute, nonlocalized. TECHNIQUE: * CT abdomen and pelvis was performed after the administration of intravenous contrast. Coronal and sagittal reformatted images were generated and reviewed. Automated exposure control was utilized. * All CT scans at this facility use dose modulation, iterative reconstruction, and/or weight based dosing when appropriate to reduce radiation dose to as low as reasonably achievable. FINDINGS: Comparison is made to 10/17/2022. Lung bases are clear. No intraperitoneal free air. Upgo-nu-xnifdltf aortoiliac plaque at the bifurcation without obvious aneurysmal changes. Portal and splenic vein are patent. Subcentimeter hypoattenuation in the posterior right hepatic lobe which is too small to characterize but may reflect a cyst. Liver, gallbladder, spleen, pancreas, adrenal glands are otherwise unremarkable. Kidneys, visualized ureters and bladder appear unremarkable. Mildly prominent prostate gland. Terminal ileum is unremarkable. Appendix is unremarkable. No evidence of bowel obstruction. No significant free fluid, retroperitoneal collection or suspicious lymphadenopathy. No acute soft tissue or osseous abnormality. There are nonspecific sclerotic changes along the T9 and T10 inferior endplates. IMPRESSION: * No evidence of acute intra-abdominal or pelvic process, by CT. Finalized by Abdon Richey on 01/02/2024 7:29 PM Normal [facility] LIPASEon 01-02-2024 Lipase [Catalytic activity/Vol] 26 U/L Normal 17-[address] [facility] Comment on above: Performed By: #### 8 9579-7, 3040-3 #### [facility] ([id number]) [address] [place] [address] 14152 Troponin I.cardiac High sens itivity method [Mass/Vol]on 01-02-2024 1 HOUR TROP I, HIGH SENSITIVITY <2 Normal <[address] [facility] Comment on above: Performed By: #### 8 9579-7, 3040-3 #### [facility] ([id number]) [address] [place] [address] TROPONIN I, HIGH SENSITIVITY <2 Normal <[address] [facility] Comment on above: Performed By: #### [place], 88377-1, CBCA #### [facility] ([id number]) [address] [place] [address] 42182 URN MACROSCOPIC NURon 2023 BILIRUBIN SARAH Negative Normal NEG [facility] Comment on above: Performed By: #### N UM #### [facility] ([id number]) [address] [place] [address] [place] [address] BLOOD/HGB SARAH Trace Abnormal NEG [facility] Comment on above: Performed By: #### N UM #### [facility] ([id number]) [address] [place] [address] [place] [address] GLUCOSE SARAH Negative Normal NEG [facility] Comment on above: Performed By: #### N UM #### [facility] ([id number]) [address] [place] [address] [place] [address] KETONES SARAH Negative Normal NEG [facility] Comment on above: Performed By: #### N UM #### [facility] ([id number]) [address] [place] [address] [place] [address] LEUKOCYTE ESTERASE SARAH Negative Normal NEG [facility] Comment on above: Performed By: #### N UM #### [facility] ([id number]) [address] [place] [address] [place] [address] NITRITE SARAH Negative Normal NEG [facility] Comment on above: Performed By: #### N UM #### [facility] ([id number]) [address] [place] [address] 65133 PH SARAH 5.5 Normal 5.0-8.[address] [facility] Comment on above: Performed By: #### N UM #### [facility] ([id number]) [address] [place] [address] [place] [address] PROTEIN SARAH Trace Abnormal NEG [facility] Comment on above: Performed By: #### N UM #### [facility] ([id number]) [address] [place] [address] 20987 SPECIFIC GRAVITY SARAH 1.010 Normal 1.003-1.035 [facility] Comment on above: Performed By: #### N UM #### [facility] ([id number]) [address] [place] [address] 97503 UROBILINOGEN SARAH 0.2 eu/dL Normal <1.[address] [facility] Comment on above: Performed By: #### N UM #### [facility] ([id number]) [address] [place] [address] 16273 XR CHEST 2 VWSon 01-02-2024 XR CHEST 2 VWS XR CHEST 2 VWS XR CHEST 2 VWS HISTORY: Cough, shortness of breath COMPARISON: Chest radiograph 12/02/2021 FINDINGS: PA and lateral upright films obtained. The cardiomediastinal silhouette is within normal limits. No pleural effusion. No consolidation. IMPRESSION: No radiographic evidence of acute cardiopulmonary process. Approved by Resident: Ramos Rivero DO on 01/02/2024 8:46 PM I, Tc Hedrick MD have personally reviewed the image(s) and agree with and/or edited the report Finalized by Tc Hedrick MD on 01/02/2024 8:49 PM Normal [facility] A1C with Estimated Average [facility] 04-15-2023 Glucose [Mass/Vol] 269 mg/dL Normal [facility] Comment on above: Result Comment: PERF ORMED BY: [address] [address] PATHOLOGIST YARD STOCKER AMARILIS MONET M.D. Performed By: #### L DLD, LIPID, BMP, CBC #### [address] [address] HbA1c (Bld) [Mass fraction] 11.0 % High 4.3-5.6 [facility] Comment on above: Result Comment: Incr eased risk for diabetes: 5.7 - 6.4 diabetes: >6.4 glycemic control for adults with diabetes: <7.0 Performed By: #### L DLD, LIPID, BMP, CBC #### [facility] [address] Basic Metabolic Panelon - Anion gap [Moles/Vol] 9.6 mmol/L Normal 6.0-15.0 [facility] Comment on above: Performed By: #### L IPID, BMP, CBC #### [facility] [address] [place] [address] [place] Calcium [Mass/Vol] 8.7 mg/dL Normal 8.6-10.3 [facility] Comment on above: Performed By: #### L IPID, BMP, CBC #### [facility] [address] [place] [address] [place] Chloride [Moles/Vol] 103 mmol/L Normal 98-107 [facility] Comment on above: Performed By: #### L IPID, BMP, CBC #### [facility] [address] [place] [address] [place] CO2 [Moles/Vol] 25.1 mmol/L Normal 21.0-31.0 [facility] Comment on above: Performed By: #### L IPID, BMP, CBC #### [facility] [address] [place] [address] [place] Creatinine [Mass/Vol] 0.72 mg/dL Normal 0.70-1.30 [facility] Comment on above: Performed By: #### L IPID, BMP, CBC #### [facility] [address] [place] [address] [place] Creatinine Clr Calc Pharmacy 135.19 Normal [facility] Comment on above: Performed By: #### L IPID, BMP, CBC #### [facility] [address] [place] [address] [place] GFR/1.73 sq M.predicted MDRD (S/P/Bld) [Vol rate/Area] mL/min/{1.73_m2} Normal [facility] Comment on above: Performed By: #### L IPID, BMP, CBC #### [facility] [address] [place] [address] [place] Glucose [Mass/Vol] 205 mg/dL High 70-100 [facility] Comment on above: Result Comment: [facility] Glucose Reference Range is dependent on time and content of last meal. Glucose of more than 200 mg/dL in a nonstressed, ambulatory subject supports the diagnosis of Diabetes Mellitus. ADA recommended reference range Performed By: #### L IPID, BMP, CBC #### [facility] [address] Potassium [Moles/Vol] 3.7 mmol/L Normal 3.5-5.1 [facility] Comment on above: Performed By: #### L IPID, BMP, CBC #### [facility] [address] Sodium [Moles/Vol] 134 mmol/L Low 136-145 [facility] Comment on above: Performed By: #### L IPID, BMP, CBC #### [facility] [address] [place] [address] [place] Urea nitrogen [Mass/Vol] 12 mg/dL Normal 7-25 [facility] Comment on above: Performed By: #### L IPID, BMP, CBC #### [facility] [address] Basophils Auto (Bld) [#/Vol] Ordered By: Ramos Pappas on 04-15-2023 Basophils (Bld) [#/Vol] 0.1 10*3/uL 0.0-0.2 [facility] Basophils/100 WBC Auto (Bld) Ordered By: Ramos Pappas on 04-15-2023 Basophils/100 WBC (Bld) 0.9 % . [facility] Calcium [Mass/volume] in Ser um or PlasmaOrdered By: Ramos Pappas on 04-15-2023 Calcium [Mass/Vol] 8.7 mg/dL 8.6-10.3 [facility] Carbon dioxide, total [Moles /volume] in Serum or PlasmaOrdered By: Ramos Pappas on 04-15-2023 CO2 [Moles/Vol] 25.1 mmol/L 21.0-31.0 [facility] Chloride [Moles/volume] in S carri or PlasmaOrdered By: Ramos Pappas on 04-15-2023 Chloride [Moles/Vol] 103 mmol/L 98-107 [facility] Cholesterol [Mass/volume] in Serum or PlasmaOrdered By: Ramos Pappas on 04-15-2023 Cholesterol [Mass/Vol] 274 mg/dL 140-200 [facility] Comment on above: Chol less than 200 m g/dl low riskChol 201-239 mg/dl borderline riskChol 240 mg/dl and greater high risk Cholesterol in LDL Calc [Mas s/Vol]Ordered By: Ramos Pappas on 04-15-2023 Cholesterol in LDL [Mass/Vol] TNP [facility] Comment on above: Test not performed Cholesterol in VLDL Calc [Ma ss/Vol]Ordered By: Ramos Pappas on 04-15-2023 Cholesterol in VLDL [Mass/Vol] 82 mg/dL [facility] Complete Blood Count Auto Di ffon 04-15-2023 Basophils (Bld) [#/Vol] 0.1 10*3/uL Normal 0.0-0.2 [facility] Comment on above: Result Comment: PERF ORMED BY: [place] [address] PATHOLOGIST [employer] AMARILIS MONET M.D. Performed By: #### L IPID, BMP, CBC #### [facility] [address] [place] [address] Basophils/100 WBC (Bld) 0.9 % Normal . [facility] Comment on above: Performed By: #### L IPID, BMP, CBC #### [facility] [address] [place] [address] [place] Eosinophils (Bld) [#/Vol] 0.1 10*3/uL Normal 0.0-0.45 [facility] Comment on above: Performed By: #### L IPID, BMP, CBC #### [place] [address] [place] Eosinophils/100 WBC (Bld) 0.7 % Normal . [facility] Comment on above: Performed By: #### L IPID, BMP, CBC #### [address] Erythrocyte distribution width (RBC) [Ratio] 13.6 % Normal 12.0-14.8 [facility] Comment on above: Performed By: #### L IPID, BMP, CBC #### [address] Hematocrit (Bld) [Volume fraction] 46.6 % Normal 38.8-50.0 [facility] Comment on above: Performed By: #### L IPID, BMP, CBC #### [address] Hemoglobin (Bld) [Mass/Vol] 16.2 g/dL Normal 13.0-17.0 [facility] Comment on above: Performed By: #### L IPID, BMP, CBC #### [address] Lymphocytes (Bld) [#/Vol] 3.0 10*3/uL Normal 1.00-4.8 [facility] Comment on above: Performed By: #### L IPID, BMP, CBC #### [address] Lymphocytes/100 WBC (Bld) 22.3 % Normal . [facility] Comment on above: Performed By: #### L IPID, BMP, CBC #### [address] MCH (RBC) [Entitic mass] 31.1 pg Normal 27.5-35.2 [facility] Comment on above: Performed By: #### L IPID, BMP, CBC #### [address] MCV (RBC) [Entitic vol] 89.4 fL Normal 83.5-101 [facility] Comment on above: Performed By: #### L IPID, BMP, CBC #### [address] Mean Corpuscular HGB Conc 34.8 g/dL Normal 32.5-35.6 [facility] Comment on above: Performed By: #### L IPID, BMP, CBC #### [address] Monocytes (Bld) [#/Vol] 0.9 10*3/uL High 0.0-0.8 [facility] Comment on above: Performed By: #### L IPID, BMP, CBC #### [place] [address] [place] Monocytes/100 WBC (Bld) 7.1 % Normal . [facility] Comment on above: Performed By: #### L IPID, BMP, CBC #### [address] Neutrophils (Bld) [#/Vol] 9.2 10*3/uL High 1.8-7.7 [facility] Comment on above: Performed By: #### L IPID, BMP, CBC #### [place] [address] [place] Neutrophils/100 WBC (Bld) 69.0 % Normal . [facility] Comment on above: Performed By: #### L IPID, BMP, CBC #### [address] NRBC% 0.0 /100{WBC} Normal 0-0.5 [facility] Comment on above: Performed By: #### L IPID, BMP, CBC #### [address] Platelet mean volume (Bld) [Entitic vol] 8.0 fL Normal 6.6-10.1 [facility] Comment on above: Performed By: #### L IPID, BMP, CBC #### [place] [address] [place] Platelets (Bld) [#/Vol] 262 10*3/uL Normal 150-450 [facility] Comment on above: Performed By: #### L IPID, BMP, CBC #### [facility] [address] [place] [id number] [place] RBC (Bld) [#/Vol] 5.21 10*6/uL Normal 3.90-5.60 [facility] Comment on above: Performed By: #### L IPID, BMP, CBC #### [facility] [address] [place] [id number] [place] WBC (Bld) [#/Vol] 13.3 10*3/uL High 4.1-10.5 [facility] Comment on above: Performed By: #### L IPID, BMP, CBC #### [facility] [address] Creatinine [Mass/volume] in Serum or PlasmaOrdered By: Ramos Pappas on 04-15-2023 Creatinine [Mass/Vol] 0.72 mg/dL 0.70-1.30 [facility] ECG 12 lead ECGon 04-15-2023 ECG 12 lead ECG [facility] [place] [address] [place] [address] Electrocardiograph Report Signed Patient: Gurvinder Glass MR#: [id number] : 1980 Acct:[id number] Age/Sex: 42 / M ADM Date: 04/13/23 Loc: Room: [address] [place] [address] Type: DIS IN Attending Dr: Yasemin Wilkinson MD Ordering Provider: Shyala Mohamud DO Date of Service: 04/15/23 ECG/ECG 12 lead ECG: nstemi Copies to: Test Reason : Blood Pressure : / mmHG Vent. Rate : 066 BPM Atrial Rate : 066 BPM P-R Int : 166 ms QRS Dur : 086 ms QT Int : 406 ms P-R-T Axes : 023 069 055 degrees QTc Int : 425 ms Normal sinus rhythm Normal ECG When compared with ECG of 14-APR-2023 15:25, (Unconfirmed) No significant change was found Confirmed by MICHELLE PHILLIPS [facility] ([id number] on 04/15/2023 6:07:11 PM Referred By: Electronically Signed By:BETO MARTINEZ MD [facility] Transcribed By: MUS Signed By Chris Martinez MD 04/15/23 1807 Normal [facility] Eosinophils Auto (Bld) [#/Vo l]Ordered By: Ramos Pappas on 04-15-2023 Eosinophils (Bld) [#/Vol] 0.1 10*3/uL 0.0-0.45 [facility] Eosinophils/100 WBC Auto (Bl d)Ordered By: Ramos Pappas on 04-15-2023 Eosinophils/100 WBC (Bld) 0.7 % . [facility] Erythrocyte distribution wid th Auto (RBC) [Ratio]Ordered By: Ramos Pappas on 04-15-2023 Erythrocyte distribution width (RBC) [Ratio] 13.6 % 12.0-14.8 [facility] Glucose [Mass/volume] in Ser um or PlasmaOrdered By: Ramos Pappas on 04-15-2023 Glucose [Mass/Vol] 205 mg/dL 70-100 [facility] Comment on above: ADA recommended refe rence rangeRandom Glucose Reference Range is dependent on time and content of last meal. Glucose of more than 200 mg/dL in a nonstressed, ambulatory subject supports the diagnosis of Diabetes Mellitus. Glucose mean value [Mass/vol ume] in Blood Estimated from glycated hemoglobinOrdered By: Ahsan Kramer on 04-15-2023 Average glucose Estimated from glycated hemoglobin (Bld) [Mass/Vol] 269 mg/dL [facility] Hematocrit Auto (Bld) [Volum e fraction]Ordered By: Ramos Pappas on 04-15-2023 Hematocrit (Bld) [Volume fraction] 46.6 % 38.8-50.0 [facility] Hemoglobin A1c percentageOrd ered By: Ahsan Kramer on 04-15-2023 HbA1c (Bld) [Mass fraction] 11.0 % 4.3-5.6 [facility] Comment on above: Increased risk for d iabetes: 5.7 - 6.4diabetes: >6.4glycemic control for adults with diabetes: <7.0 Hemoglobin [Mass/volume] in BloodOrdered By: Ramos Papaps on 02-23-2024 Hemoglobin (Bld) [Mass/Vol] 16.2 g/dL 13.0-17.0 [facility] Leukocytes [#/volume] correc bela for nucleated erythrocytes in Blood by Automated counOrdered By: Ramos Pappas on 04-15-2023 WBC corrected for nucl RBC Auto (Bld) [#/Vol] 13.3 10*3/uL 4.1-10.5 [facility] Lipid Panelon 04-15-2023 Cholesterol [Mass/Vol] 274 mg/dL High 140-200 [facility] Comment on above: Result Comment: Chol less than 200 mg/dl low risk Chol 201-239 mg/dl borderline risk Chol 240 mg/dl and greater high risk Performed By: #### L IPID BMP, CBC #### [facility] [address] Cholesterol in HDL [Mass/Vol] 33 mg/dL Normal 23-92 [facility] Comment on above: Result Comment: HDL CHOL ATP-III CLASSIFICATION Cardiovascular Risk HDL > or equal to 60 mg/dL LOW HDL < 40 mg/dL HIGH Performed By: #### L IPMORALES BMP, CBC #### [facility] [address] Cholesterol.total/Chol esterol in HDL [Mass ratio] 8.3 {ratio} Normal <5.0 [facility] Comment on above: Result Comment: PERF ORMED BY: [place] [address] PATHOLOGIST [employer] AMARILIS MONET M.D. Performed By: #### L IPMORALES BMP, CBC #### [facility] [address] [place] [id number] [place] LDL Cholesterol,Calculated Not performed Normal 0-100 [facility] Comment on above: Performed By: #### L IPID BMP, CBC #### [facility] [address] [place] [id number] [place] Triglyceride w/Reflex 413 mg/dL High 0-149 [facility] Comment on above: Result Comment: TRIG ATP III CLASSIFICATION TRIG less than 150 mg/dL Normal TRIG 150-199 mg/dL Borderline high TRIG 200-500 mg/dL High TRIG greater than 500 mg/dL Very high Standard traceable to the Center for Disease Conrtrol and Prevention (CDC) test method. If the triglyceride result is greater than 400, LDLC and related calculations cannot be calculated and resulted. Performed By: #### L SHARYN CARDONA, CBC #### [facility] [address] VLDL CHOLESTEROL 82 mg/dL Normal [facility] Comment on above: Performed By: #### L IPID, BMP, CBC #### [facility] [address] Lymphocytes Auto (Bld) [#/Vo l]Ordered By: Ramos Pappas on 04-15-2023 Lymphocytes (Bld) [#/Vol] 3.0 10*3/uL 1.00-4.8 [facility] Lymphocytes/100 WBC Auto (Bl d)Ordered By: Ramos Pappas on 04-15-2023 Lymphocytes/100 WBC (Bld) 22.3 % . [facility] MCH Auto (RBC) [Entitic mass ]Ordered By: Ramos Pappas on 04-15-2023 MCH (RBC) [Entitic mass] 31.1 pg 27.5-35.2 [facility] MCHC Auto (RBC) [Mass/Vol]Or dered By: Ramos Pappas on 04-15-2023 MCHC (RBC) [Mass/Vol] 34.8 g/dL 32.5-35.6 [facility] MCV Auto (RBC) [Entitic vol] Ordered By: Ramos Pappas on 04-15-2023 MCV (RBC) [Entitic vol] 89.4 fL 83.5-101 [facility] Monocytes Auto (Bld) [#/Vol] Ordered By: Ramos Pappas on 04-15-2023 Monocytes (Bld) [#/Vol] 0.9 10*3/uL 0.0-0.8 [facility] Monocytes/100 WBC Auto (Bld) Ordered By: Ramos Pappas on 04-15-2023 Monocytes/100 WBC (Bld) 7.1 % . [facility] Neutrophils Auto (Bld) [#/Vo l]Ordered By: Ramos Pappas on 04-15-2023 Neutrophils (Bld) [#/Vol] 9.2 10*3/uL 1.8-7.7 [facility] Neutrophils/100 WBC Auto (Bl d)Ordered By: Ramos Pappas on 04-15-2023 Neutrophils/100 WBC (Bld) 69.0 % . [facility] No Panel InformationOrdered By: Ramos Pappas on 04-15-2023 Estimated GFR (CKD-EPI) > 60.0 mL/Min [facility] Creatinine Clearance (Chem 135.19 [facility] Nucleated erythrocytes [Pres ence] in Blood by Automated countOrdered By: Ramos Pappas on 04-15-2023 Nucleated RBC Auto Ql (Bld) 0.0 /100{WBC} 0-0.5 [facility] Platelet mean volume Auto (B ld) [Entitic vol]Ordered By: Ramos Pappas on 04-15-2023 Platelet mean volume (Bld) [Entitic vol] 8.0 fL 6.6-10.1 [facility] Platelets Auto (Bld) [#/Vol] Ordered By: Ramos Pappas on 04-15-2023 Platelets (Bld) [#/Vol] 262 10*3/uL 150-450 [facility] Potassium [Moles/volume] in Serum or PlasmaOrdered By: Ramos Pappas on 04-15-2023 Potassium [Moles/Vol] 3.7 mmol/L 3.5-5.1 [facility] RBC Auto (Bld) [#/Vol]Ordere d By: Ramos Pappas on 04-15-2023 RBC (Bld) [#/Vol] 5.21 10*6/uL 3.90-5.60 [facility] Serum or plasma anion gap de terminationOrdered By: Ramos Pappas on 04-15-2023 Anion gap [Moles/Vol] 9.6 mmol/L 6.0-15.0 [facility] Serum or plasma high density lipoprotein (HDL) cholesterol measurementOrdered By: Ramos Pappas on 04-15-2023 Cholesterol in HDL [Mass/Vol] 33 mg/dL 23- [facility] Comment on above: HDL CHOL ATP-III CLA SSIFICATION Cardiovascular RiskHDL > or equal to 60 mg/dL LOWHDL < 40 mg/dL HIGH Serum or plasma total choles terol/high density lipoprotein (HDL) cholesterol mass ratOrdered By: Ramos Pappas on 04-15-2023 Cholesterol.total/Chol esterol in HDL [Mass ratio] 8.3 {ratio} <5.0 [facility] Sodium [Moles/volume] in Ser um or PlasmaOrdered By: Ramos Pappas on 04-15-2023 Sodium [Moles/Vol] 134 mmol/L 136-145 [facility] Triglyceride [Mass/volume] i n Serum or PlasmaOrdered By: Ramos Pappas on 04-15-2023 Triglyceride [Mass/Vol] 413 mg/dL 0-149 [facility] Comment on above: If the triglyceride result is greater than 400, LDLC and related calculations cannot be calculated and resulted.TRIG ATP III CLASSIFICATIONTRIG less than 150 mg/dL NormalTRIG 150-199 mg/dL Borderline highTRIG 200-500 mg/dL High TRIG greater than 500 mg/dL Very highStandard traceable to the Center for Disease Conrtrol and Prevention (CDC) test method. Troponin I High Sensitivityo n 04-15-2023 Troponin I High Sensitivity 27.7 pg/mL High 0.0-20.0 [facility] Comment on above: Result Comment: PERF ORMED BY: [place] [address] PATHOLOGIST [employer] STOCKER AMARILIS MONET M.D. Performed By: #### L DLD, LIPID, BMP, CBC #### [address] Troponin I.cardiac [Mass/vol ume] in Serum or Plasma by Detection limit <= 0.01 ng/Ordered By: Shayla Mohamud on 04-15-2023 Troponin I.cardiac DL <= 0.01 ng/mL [Mass/Vol] 27.7 pg/mL 0.0-20.0 [facility] Urea nitrogen [Mass/volume] in Serum or PlasmaOrdered By: Ramos Pappas on 04-15-2023 Urea nitrogen [Mass/Vol] 12 mg/dL 7-25 [facility] WBC Auto (Bld) [#/Vol]Ordere d By: Ramos Pappas on 04-15-2023 WBC (Bld) [#/Vol] 13.3 10*3/uL 4.1-10.5 [facility] Activated partial thrombopla stin time (aPTT) in platelet poor plasma by coagulation aOrdered By: Ramos [place] on 04-14-2023 aPTT Coag (PPP) [Time] 59.4 s 25.1-36.5 [facility] Comment on above: A hematocrit value g reater than 55% may lead to inaccurate results in coagulation testing. Patients having hematocrit values >55% require a special collection tube for coagulation studies. Please contact the laboratory at [phone] for redraw instructions. B-Type Natriuretic Peptideon 04-14-2023 Natriuretic peptide B (Bld) [Mass/Vol] 18.0 pg/mL Normal 5-100 [facility] Comment on above: Result Comment: PERF ORMED BY: [place] [address] PATHOLOGIST [employer] AMARILIS MONET M.D. Performed By: #### L DLD, LIPID, BMP, CBC #### [address] Natriuretic peptide B (Bld) [Mass/Vol] 18.0 pg/mL Normal 5-100 [facility] Comment on above: Result Comment: PERF ORMED BY: [place] [address] PATHOLOGIST [employer] STOCKER AMARILIS MONET M.D. Performed By: #### L DLD, LIPID, BMP, CBC #### [facility] [address] [place] [address] Basic Metabolic Panelon 03-25 Anion gap [Moles/Vol] 11.4 mmol/L Normal 6.0-15.0 [facility] Comment on above: Performed By: #### L DLD, LIPID, BMP, CBC #### [facility] [address] Calcium [Mass/Vol] 8.4 mg/dL Low 8.6-10.3 [facility] Comment on above: Performed By: #### L DLD, LIPID, BMP, CBC #### [facility] [address] [place] [address] [place] Chloride [Moles/Vol] 101 mmol/L Normal 98-107 [facility] Comment on above: Performed By: #### L DLD, LIPID, BMP, CBC #### [facility] [address] [place] [address] [place] CO2 [Moles/Vol] 25.3 mmol/L Normal 21.0-31.0 [facility] Comment on above: Performed By: #### L DLD, LIPID, BMP, CBC #### [address] Creatinine [Mass/Vol] 0.83 mg/dL Normal 0.70-1.30 [facility] Comment on above: Performed By: #### L DLD, LIPID, BMP, CBC #### [place] [address] [place] Creatinine Clr Calc Pharmacy 127.61 Normal [facility] Comment on above: Performed By: #### L DLD, LIPID, BMP, CBC #### [place] [address] [place] GFR/1.73 sq M.predicted MDRD (S/P/Bld) [Vol rate/Area] mL/min/{1.73_m2} Normal [facility] Comment on above: Performed By: #### L DLD, LIPID, BMP, CBC #### [address] Glucose [Mass/Vol] 243 mg/dL High 70-100 [facility] Comment on above: Result Comment: [place] Glucose Reference Range is dependent on time and content of last meal. Glucose of more than 200 mg/dL in a nonstressed, ambulatory subject supports the diagnosis of Diabetes Mellitus. ADA recommended reference range Performed By: #### L DLD, LIPID, BMP, CBC #### [address] Potassium [Moles/Vol] 3.7 mmol/L Normal 3.5-5.1 [facility] Comment on above: Performed By: #### L DLD, LIPID, BMP, CBC #### [facility] [address] [place] [address] [place] Sodium [Moles/Vol] 134 mmol/L Low 136-145 [facility] Comment on above: Performed By: #### L DLD, LIPID, BMP, CBC #### [facility] [address] Urea nitrogen [Mass/Vol] 10 mg/dL Normal 7-25 [facility] Comment on above: Performed By: #### L DLD, LIPID, BMP, CBC #### [address] Anion gap [Moles/Vol] 14.5 mmol/L Normal 6.0-15.0 [facility] Comment on above: Performed By: #### L DLD, LIPID, BMP, CBC #### [address] Calcium [Mass/Vol] 8.8 mg/dL Normal 8.6-10.3 [facility] Comment on above: Performed By: #### L DLD, LIPID, BMP, CBC #### [place] [address] [place] Chloride [Moles/Vol] 98 mmol/L Normal 98-107 [facility] Comment on above: Performed By: #### L DLD, LIPID, BMP, CBC #### [place] [address] [place] CO2 [Moles/Vol] 28.0 mmol/L Normal 21.0-31.0 [facility] Comment on above: Performed By: #### L DLD, LIPID, BMP, CBC #### [facility] [address] [place] [address] [place] Creatinine [Mass/Vol] 0.78 mg/dL Normal 0.70-1.30 [facility] Comment on above: Performed By: #### L DLD, LIPID, BMP, CBC #### [facility] [address] [place] [address] [place] Creatinine Clr Calc Pharmacy 135.79 Normal [facility] Comment on above: Result Comment: PERF ORMED BY: [place] [address] PATHOLOGIST [employer]OCK[employer] AMARILIS MONET M.D. Performed By: #### L DLD, LIPID, BMP, CBC #### [facility] [address] [place] [address] [place] GFR/1.73 sq M.predicted MDRD (S/P/Bld) [Vol rate/Area] mL/min/{1.73_m2} Normal [facility] Comment on above: Performed By: #### L DLD, LIPID, BMP, CBC #### [place] [address] [place] Glucose [Mass/Vol] 206 mg/dL High 70-100 [facility] Comment on above: Result Comment: [facility] Glucose Reference Range is dependent on time and content of last meal. Glucose of more than 200 mg/dL in a nonstressed, ambulatory subject supports the diagnosis of Diabetes Mellitus. ADA recommended reference range Performed By: #### L DLD, LIPID, BMP, CBC #### [place] [address] [place] Potassium [Moles/Vol] 3.5 mmol/L Normal 3.5-5.1 [facility] Comment on above: Performed By: #### L DLD, LIPID, BMP, CBC #### [place] [address] [place] Sodium [Moles/Vol] 137 mmol/L Normal 136-145 [facility] Comment on above: Performed By: #### L DLD, LIPID, BMP, CBC #### [facility] [address] [place] [address] [place] Urea nitrogen [Mass/Vol] 9 mg/dL Normal 7-25 [facility] Comment on above: Performed By: #### L DLD, LIPID, BMP, CBC #### [place] [address] [place] Cholesterol in LDL [Mass/vol ume] in Serum or PlasmaOrdered By: Ramos Pappas on 04-14-2023 Cholesterol in LDL [Mass/Vol] 143 mg/dL 0-100 [facility] Comment on above: LDL ATP III CLASSIFI CATIONLDL less than 100 mg/dL OptimalLDL 100-129 mg/dL Near or above optimalLDL 130-159 mg/dL Borderline highLDL 160-189 mg/dL HighLDL greater than 189 mg/dL Very high Complete Blood Count Auto Di ffon 04-14-2023 Basophils (Bld) [#/Vol] 0.1 10*3/uL Normal 0.0-0.2 [facility] Comment on above: Result Comment: PERF ORMED BY: [place] [address] PATHOLOGIST [employer] AMARILIS MONET M.D. Performed By: #### L DLD, LIPID, BMP, CBC #### [address] Basophils/100 WBC (Bld) 0.9 % Normal . [facility] Comment on above: Performed By: #### L DLD, LIPID, BMP, CBC #### [address] Eosinophils (Bld) [#/Vol] 0.2 10*3/uL Normal 0.0-0.45 [facility] Comment on above: Performed By: #### L DLD, LIPID, BMP, CBC #### [address] Eosinophils/100 WBC (Bld) 1.8 % Normal . [facility] Comment on above: Performed By: #### L DLD, LIPID, BMP, CBC #### [address] Erythrocyte distribution width (RBC) [Ratio] 13.6 % Normal 12.0-14.8 [facility] Comment on above: Performed By: #### L DLD, LIPID, BMP, CBC #### [address] Hematocrit (Bld) [Volume fraction] 46.3 % Normal 38.8-50.0 [facility] Comment on above: Performed By: #### L DLD, LIPID, BMP, CBC #### [address] Hemoglobin (Bld) [Mass/Vol] 16.2 g/dL Normal 13.0-17.0 [facility] Comment on above: Performed By: #### L DLD, LIPID, BMP, CBC #### [address] Lymphocytes (Bld) [#/Vol] 4.6 10*3/uL Normal 1.00-4.8 [facility] Comment on above: Performed By: #### L DLD, LIPID, BMP, CBC #### [address] Lymphocytes/100 WBC (Bld) 46.3 % Normal . [facility] Comment on above: Performed By: #### L DLD, LIPID, BMP, CBC #### [address] MCH (RBC) [Entitic mass] 31.3 pg Normal 27.5-35.2 [facility] Comment on above: Performed By: #### L DLD, LIPID, BMP, CBC #### [address] MCV (RBC) [Entitic vol] 89.2 fL Normal 83.5-101 [facility] Comment on above: Performed By: #### L DLD, LIPID, BMP, CBC #### [address] Mean Corpuscular HGB Conc 35.1 g/dL Normal 32.5-35.6 [facility] Comment on above: Performed By: #### L DLD, LIPID, BMP, CBC #### [address] Monocytes (Bld) [#/Vol] 0.8 10*3/uL Normal 0.0-0.8 [facility] Comment on above: Performed By: #### L DLD, LIPID, BMP, CBC #### [address] Monocytes/100 WBC (Bld) 8.0 % Normal . [facility] Comment on above: Performed By: #### L DLD, LIPID, BMP, CBC #### [address] Neutrophils (Bld) [#/Vol] 4.3 10*3/uL Normal 1.8-7.7 [facility] Comment on above: Performed By: #### L DLD, LIPID, BMP, CBC #### [address] Neutrophils/100 WBC (Bld) 43.0 % Normal . [facility] Comment on above: Performed By: #### L DLD, LIPID, BMP, CBC #### [address] NRBC% 0.3 /100{WBC} Normal 0-0.5 [facility] Comment on above: Performed By: #### L DLD, LIPID, BMP, CBC #### [address] Platelet mean volume (Bld) [Entitic vol] 8.1 fL Normal 6.6-10.1 [facility] Comment on above: Performed By: #### L DLD, LIPID, BMP, CBC #### [address] Platelets (Bld) [#/Vol] 247 10*3/uL Normal 150-450 [facility] Comment on above: Performed By: #### L DLD, LIPID, BMP, CBC #### [address] RBC (Bld) [#/Vol] 5.19 10*6/uL Normal 3.90-5.60 [facility] Comment on above: Performed By: #### L DLD, LIPID, BMP, CBC #### [address] WBC (Bld) [#/Vol] 9.9 10*3/uL Normal 4.1-10.5 [facility] Comment on above: Performed By: #### L DLD, LIPID, BMP, CBC #### [place] [id number] [place] Basophils (Bld) [#/Vol] 0.1 10*3/uL Normal 0.0-0.2 [facility] Comment on above: Result Comment: PERF ORMED BY: [place] [address] PATHOLOGIST [employer] STOCKER AMARILIS MONET M.D. Performed By: #### L DLD, LIPID, BMP, CBC #### [address] Basophils/100 WBC (Bld) 0.9 % Normal . [facility] Comment on above: Performed By: #### L DLD, LIPID, BMP, CBC #### [address] Eosinophils (Bld) [#/Vol] 0.2 10*3/uL Normal 0.0-0.45 [facility] Comment on above: Performed By: #### L DLD, LIPID, BMP, CBC #### [address] Eosinophils/100 WBC (Bld) 1.4 % Normal . [facility] Comment on above: Performed By: #### L DLD, LIPID, BMP, CBC #### [address] Erythrocyte distribution width (RBC) [Ratio] 13.9 % Normal 12.0-14.8 [facility] Comment on above: Performed By: #### L DLD, LIPID, BMP, CBC #### [address] Hematocrit (Bld) [Volume fraction] 48.7 % Normal 38.8-50.0 [facility] Comment on above: Performed By: #### L DLD, LIPID, BMP, CBC #### [address] Hemoglobin (Bld) [Mass/Vol] 17.0 g/dL Normal 13.0-17.0 [facility] Comment on above: Performed By: #### L DLD, LIPID, BMP, CBC #### [address] Lymphocytes (Bld) [#/Vol] 4.8 10*3/uL Normal 1.00-4.8 [facility] Comment on above: Performed By: #### L DLD, LIPID, BMP, CBC #### [address] Lymphocytes/100 WBC (Bld) 41.3 % Normal . [facility] Comment on above: Performed By: #### L DLD, LIPID, BMP, CBC #### [address] MCH (RBC) [Entitic mass] 31.1 pg Normal 27.5-35.2 [facility] Comment on above: Performed By: #### L DLD, LIPID, BMP, CBC #### [address] MCV (RBC) [Entitic vol] 89.4 fL Normal 83.5-101 [facility] Comment on above: Performed By: #### L DLD, LIPID, BMP, CBC #### [address] Mean Corpuscular HGB Conc 34.8 g/dL Normal 32.5-35.6 [facility] Comment on above: Performed By: #### L DLD, LIPID, BMP, CBC #### [address] Monocytes (Bld) [#/Vol] 0.9 10*3/uL High 0.0-0.8 [facility] Comment on above: Performed By: #### L DLD, LIPID, BMP, CBC #### [address] Monocytes/100 WBC (Bld) 8.0 % Normal . [facility] Comment on above: Performed By: #### L DLD, LIPID, BMP, CBC #### [address] Neutrophils (Bld) [#/Vol] 5.6 10*3/uL Normal 1.8-7.7 [facility] Comment on above: Performed By: #### L DLD, LIPID, BMP, CBC #### [address] Neutrophils/100 WBC (Bld) 48.4 % Normal . [facility] Comment on above: Performed By: #### L DLD, LIPID, BMP, CBC #### [address] NRBC% 0.4 /100{WBC} Normal 0-0.5 [facility] Comment on above: Performed By: #### L DLD, LIPID, BMP, CBC #### [address] Platelet mean volume (Bld) [Entitic vol] 7.9 fL Normal 6.6-10.1 [facility] Comment on above: Performed By: #### L DLD, LIPID, BMP, CBC #### [address] Platelets (Bld) [#/Vol] 270 10*3/uL Normal 150-450 [facility] Comment on above: Performed By: #### L DLD, LIPID, BMP, CBC #### [address] RBC (Bld) [#/Vol] 5.45 10*6/uL Normal 3.90-5.60 [facility] Comment on above: Performed By: #### L DLD, LIPID, BMP, CBC #### [address] WBC (Bld) [#/Vol] 11.6 10*3/uL High 4.1-10.5 [facility] Comment on above: Performed By: #### L DLD, LIPID, BMP, CBC #### [address] ECG 12 lead ECGon 04-14-2023 ECG 12 lead ECG [facility] [place] [address] [place] [address] Electrocardiograph Report Signed Patient: Gurvinder Galss MR#: [id number] : 1980 Acct:[id number] Age/Sex: 42 / M ADM Date: 04/13/23 Loc: 4 Room: [address] [place] [address] Type: DIS IN Attending Dr: Yasemin Wilkinson MD Ordering Provider: Shayla Mohamud DO Date of Service: 04/14/23 ECG/ECG 12 lead ECG: Post Angioplasty Procedure Copies to: Test Reason : Blood Pressure : / mmHG Vent. Rate : 054 BPM Atrial Rate : 054 BPM P-R Int : 188 ms QRS Dur : 090 ms QT Int : 436 ms P-R-T Axes : 050 078 066 degrees QTc Int : 413 ms Sinus bradycardia Otherwise normal ECG No previous ECGs available Confirmed by BETO MARTINEZ MD, FACC () on 04/15/2023 6:07:09 PM Referred By: CED Electronically Signed By:BETO MARTINEZ MD, FACC Transcribed By: MUS Signed By Chris Martinez MD 04/15/23 180 Normal [facility] ECG 12 lead ECG [facility] [place] [address] Electrocardiograph Report Signed Patient: Gurvinder Glass MR#: [id number] : 1980 Acct:[id number] Age/Sex: 42 / M ADM Date: 04/13/23 Loc: Room: [address] [place] [address] Type: ADM IN Attending Dr: Yasemin Wilkinson MD Ordering Provider: Ramos Pappas MD Date of Service: 04/14/23 ECG/ECG 12 lead ECG: NSTEMI Copies to: Test Reason : Blood Pressure : / mmHG Vent. Rate : 058 BPM Atrial Rate : 058 BPM P-R Int : 182 ms QRS Dur : 094 ms QT Int : 430 ms P-R-T Axes : 022 073 049 degrees QTc Int : 422 ms Sinus bradycardia Otherwise normal ECG No previous ECGs available Confirmed by BETO MARTINEZ MD, FACC () on 04/14/2023 3:13:15 PM Referred By: Electronically Signed By:BETO MARTINEZ MD, FACC Transcribed By: MUS Signed By Chris Martinez MD 04/14/23 1513 Normal [facility] echo transthoracicon [facility] echo transthoracic [facility] [place] [address] [place] [address] Echocardiogram Signed Patient: Gurvinder Glass MR#: [id number] : 1980 Acct:[id number] Age/Sex: 42 / M ADM Date: 04/13/23 Loc: Room: [address] [place] [address] Type: ADM IN Attending Dr: Yasemin Wilkinson MD Ordering Provider: Ramos Pappas MD Date of Service: 04/14/23 [facility] echo transthoracic: NSTEMI Copies to: MD Chris Hodges MD Weight: 191 lb Performed By: YANELI Kern BSA: 2.0 m2 BP: 111/76 mmHg HR: 60 Reason For Study: NSTEMI History: Smoker. Interpretation Summary Moderate concentric left ventricular hypertrophy. Ejection Fraction = 55-60%. There is trace mitral regurgitation. There is trace tricuspid regurgitation. Procedure/Quality: A two-dimensional transthoracic echocardiogram with color flow and Doppler was performed. The study was technically good in quality. Left Ventricle: The left ventricular size is normal. Moderate concentric left ventricular hypertrophy. Ejection Fraction = 55-60%. No left ventricular thrombus or mass is seen. Left Atrium: The left atrium appears normal in size. The atrial septum appears normal. Right Atrium: The right atrium appears normal in size. Right Ventricle: The right ventricular size, thickness and function are normal. Aortic Valve: The aortic valve is normal in structure and function. Mitral Valve: The mitral valve is normal. There is trace mitral regurgitation. Tricuspid Valve: The tricuspid valve is normal in structure. There is trace tricuspid regurgitation. Pulmonic Valve: The pulmonic valve is not well visualized. Arteries: The aortic root is normal size. The aortic arch was visualized and no abnormalities were seen. Pericardium/Pleura: Trivial pericardial effusion not hemodynamically significant. There is no pleural effusion. IVC/Hepatic Veins: The inferior vena cava is normal in size, with a normal collapsibility index. Measurements with Normals IVSd: 1.5 cm (0.7-1.1 cm)LVIDd: 4.2 cm (3.7-5.4 cm) LVPWd: 1.3 cm (0.7-1.1 cm)LVIDs: 2.9 cm (2.3-3.6 cm) LA dimension: 3.9 cm (2.3-4.0 cm)Ao root diam: 3.1 cm(2.0-3.6 cm) asc Aorta Diam: 3.0 cm(2.1-3.4cm) Doppler with Normals RVSP(TR): 25.3 mmHg (18-35mmHg) LV V1 max: 102.0 cm/sec (0.7-1.7m/s)MV E max albert: 66.4 cm/sec(0.8-1.3m/s) MV A max albert: 66.4 cm/sec(0.0-0.0m/s) MV E/A: 1.0 (<1.5) MMode/2D Measurements Calculations RVDd: 3.0 cm FS: 31.7 % Ao root area: LVOT diam: 2.3 cm TAPSE: 1.8 cm EDV(Teich): 7.7 cm2 LVOT area: 4.2 cm2 RV S Albetr: 78.6 ml 10.1 cm/sec ESV(Teich): 31.4 ml EF(Teich): 60.0 % __ LVLd ap4: 7.0 cm SV(MOD-sp4): LAV(MOD-sp4): LA A2 area: 17.1 cm2 EDV(MOD-sp4): 39.4 ml 43.8 ml 69.4 ml LAV(MOD-sp2): LA A4 area: 17.1 cm2 LVLs ap4: 6.2 cm 46.1 ml LA length (vol): ESV(MOD-sp4): 5.1 cm 30.0 ml LA vol: 48.7 ml EF(MOD-sp4): 56.8 % LA vol index: 23.8 ml/m2 Doppler Measurements Calculations MV dec time: MV max PG: E/E' lat: 5.0 MV dec slope: 0.19 sec 29.0 mmHg E/E' med: 6.7 356.1 cm/sec2 __ Ao V2 max: LV V1 max PG: MR max albert: TV max P.0 mmHg 129.0 cm/sec 4.2 mmHg 270.1 cm/sec Ao max P.7 mmHgLV V1 mean PG: MR max PG: Ao mean P.0 mmHg 29.2 mmHg 3.7 mmHg LV V1 mean: Ao V2 mean: 65.9 cm/sec 90.2 cm/sec LV V1 VTI: 21.4 cm Ao V2 VTI: 29.3 cm JOSÉ MIGUEL(I,D): 3.1 cm2 JOSÉ MIGUEL(V,D): 3.3 cm2 __ TR max albert: 236.2 cm/sec TR max P.3 mmHg RAP systole: 3.0 mmHg Transcribed By: DESMOND Performed At: 04/14/23 0858 Signed By: Chris Martinez MD 04/14/23 1312 Normal [facility] LDL Cholesterol Measuredon 0 04-14-2023 LDL Cholesterol Measured 143 mg/dL High 0-100 [facility] Comment on above: Result Comment: LDL ATP III CLASSIFICATION LDL less than 100 mg/dL Optimal LDL 100-129 mg/dL Near or above optimal LDL 130-159 mg/dL Borderline high LDL 160-189 mg/dL High LDL greater than 189 mg/dL Very high PERFORMED BY: [place] [address] PATHOLOGIST YARD STOCKER AMARILIS MONET M.D. Performed By: #### L DLD, LIPID, BMP, CBC #### [address] Lipid Panelon 04-14-2023 Cholesterol [Mass/Vol] 265 mg/dL High 140-200 [facility] Comment on above: Result Comment: Chol less than 200 mg/dl low risk Chol 201-239 mg/dl borderline risk Chol 240 mg/dl and greater high risk Performed By: #### L DLD, LIPID, BMP, CBC #### [address] Cholesterol in HDL [Mass/Vol] 29 mg/dL Normal 23-92 [facility] Comment on above: Result Comment: HDL CHOL ATP-III CLASSIFICATION Cardiovascular Risk HDL > or equal to 60 mg/dL LOW HDL < 40 mg/dL HIGH Performed By: #### L DLD, LIPID, BMP, CBC #### [address] Cholesterol.total/Chol esterol in HDL [Mass ratio] 9.1 {ratio} Normal <5.0 [facility] Comment on above: Result Comment: PERF ORMED BY: [place] [address] PATHOLOGIST YARD STOCKER AMARILIS MONET M.D. Performed By: #### L DLD, LIPID, BMP, CBC #### [address] LDL Cholesterol,Calculated Not performed Normal 0-100 [facility] Comment on above: Performed By: #### L DLD, LIPID, BMP, CBC #### [address] Triglyceride w/Reflex 464 mg/dL High 0-149 [facility] Comment on above: Result Comment: TRIG ATP III CLASSIFICATION TRIG less than 150 mg/dL Normal TRIG 150-199 mg/dL Borderline high TRIG 200-500 mg/dL High TRIG greater than 500 mg/dL Very high Standard traceable to the Center for Disease Conrtrol and Prevention (CDC) test method. If the triglyceride result is greater than 400, LDLC and related calculations cannot be calculated and resulted. Performed By: #### L DLD, LIPID, BMP, CBC #### [address] VLDL CHOLESTEROL 92 mg/dL Normal [facility] Comment on above: Performed By: #### L DLD, LIPID, BMP, CBC #### [address] Natriuretic peptide B [Mass/ Vol]Ordered By: Ramos Pappas on 04-14-2023 Natriuretic peptide B (Bld) [Mass/Vol] 18.0 pg/mL 5-100 [facility] Partial Thromboplastin Timeo n 04-14-2023 aPTT Coag (Bld) [Time] 59.4 s High 25.1-36.5 [facility] Comment on above: Result Comment: A he matocrit value greater than 55% may lead to inaccurate results in coagulation testing. Patients having hematocrit values >55% require a special collection tube for coagulation studies. Please contact the laboratory at [phone] for redraw instructions. PERFORMED BY: [place] [address] PATHOLOGIST YARD STOCKER AMARILIS MONET M.D. Performed By: #### P TT #### [facility] [address] [place] [address] aPTT Coag (Bld) [Time] 34.8 s Normal 25.1-36.5 [facility] Comment on above: Order Comment: Comme nt Pt on heparin drip. List the anticoagulant: HEPARIN, UNFRACTIONATED Result Comment: A he matocrit value greater than 55% may lead to inaccurate results in coagulation testing. Patients having hematocrit values >55% require a special collection tube for coagulation studies. Please contact the laboratory at [phone] for redraw instructions. PERFORMED BY: [place] [address] PATHOLOGIST YARD STOCKER AMARILIS MONET M.D. Performed By: #### L DLD, LIPID, BMP, CBC #### [facility] [address] [place] [address] [place] aPTT Coag (Bld) [Time] 31.0 s Normal 25.1-36.5 [facility] Comment on above: Result Comment: A he matocrit value greater than 55% may lead to inaccurate results in coagulation testing. Patients having hematocrit values >55% require a special collection tube for coagulation studies. Please contact the laboratory at [phone] for redraw instructions. PERFORMED BY: [place] [address] PATHOLOGIST YARD STOCKER AMARILIS MONET M.D. Performed By: #### L DLD, LIPID, BMP, CBC #### [address] Prothrombin Time INRon 04-14 INR Coag (PPP) [Relative time] 1.0 {INR} Normal [facility] Comment on above: Result Comment: INR Therapeutic Range A) Pre- and Peroperative OAT started two weeks before surgery. NOT HIP SURGERY: 1.5 - 2.5 HIP SURGERY: 2 - 3 B) Primary and secondary prevention of venous THROMBOSIS: 2 - 3 C) Active venous thrombosis, pulmonary embolism and prevention of recurrent venous thrombosis: 2 - 3 D) Prevention of arterial thromboembolism including patients with mechanical heart valves: 3 - 4.5 Performed By: #### L DLD, LIPID, BMP, CBC #### [address] PT Coag (PPP) [Time] 11.2 s Normal 9.0-12.9 [facility] Comment on above: Result Comment: A he matocrit value greater than 55% may lead to inaccurate results in coagulation testing. Patients having hematocrit values >55% require a special collection tube for coagulation studies. Please contact the laboratory at [phone] for redraw instructions. Performed By: #### L DLD, LIPID, BMP, CBC #### [address] Troponin I High Sensitivityo n 04-14-2023 Troponin I High Sensitivity 16.4 pg/mL Normal 0.0-20.0 [facility] Comment on above: Result Comment: PERF ORMED BY: [place] [address] PATHOLOGIST YARD STOCKER AMARILIS MONET M.D. Performed By: #### H S TROP #### [address] Troponin I High Sensitivity 16.3 pg/mL Normal 0.0-20.0 [facility] Comment on above: Result Comment: PERF ORMED BY: [place] [phone] PATHOLOGIST YARD STOCKER AMARILIS MONET M.D. Performed By: #### L DLD, LIPID, BMP, CBC #### [address] Troponin I High Sensitivity 17.6 pg/mL Normal 0.0-20.0 [facility] Comment on above: Result Comment: PERF ORMED BY: [place] [phone] PATHOLOGIST YARD STOCKER AMARILIS MONET M.D. Performed By: #### L DLD, LIPID, BMP, CBC #### [address] Troponin I High Sensitivity 19.5 pg/mL Normal 0.0-20.0 [facility] Comment on above: Result Comment: PERF ORMED BY: [place] [phone] PATHOLOGIST YARD STOCKER AMARILIS MONET M.D. Performed By: #### L DLD, LIPID, BMP, CBC #### [place] [address] [place] Troponin I High Sensitivity 21.7 pg/mL High 0.0-20.0 [facility] Comment on above: Result Comment: PERF ORMED BY: [place] [phone] PATHOLOGIST YARD STOCKER AMARILIS MONET M.D. Performed By: #### H S TROP #### [place] [address] [place] Troponin I High Sensitivity 29.4 pg/mL High 0.0-20.0 [facility] Comment on above: Result Comment: PERF ORMED BY: [place] [phone] PATHOLOGIST YARD STOCKER AMARILIS MONET M.D. Performed By: #### L DLD, LIPID, BMP, CBC #### [place] [address] [place] XR chest 1V portableon 04-14 XR chest 1V portable [facility] Main [address] [address] XRay Report Signed Patient: Gurvinder Glass MR#: [id number] : 1980 Acct:[id number] Age/Sex: 42 / M ADM Date: 04/13/23 Loc: 4 Room: [address] [place] [address] Type: ADM IN Attending Dr: Yasemin Wilkinson MD Copies to: MD Yasemin Hodges MD Ordering Provider: Ramos Pappas MD Date of Service: 04/13/23 XR/XR chest 1V portable: chest pain Plain film chest Single view HISTORY: Chest pain COMPARISON: 04/13/23 FINDINGS: SUPPORT DEVICES: None POSTSURGICAL CHANGES: None HEART: Within normal limits PULMONARY DONAL: Within normal limits MEDIASTINUM: Unremarkable LUNGS AND PLEURA: No acute lung process, pleural effusion or pneumothorax identified. BONY STRUCTURES: Intact ADDITIONAL FINDINGS None XR/XR chest 1V portable IMPRESSION: No acute process. Impression dictated by: Uzair Hall M.D.04/14/2023 8:03 AM Dictation Location: [place] [address] Transcribed By: [facility] 04/14/23 0803 Dictated By: Uzair Hall DO 04/14/23 0802 Signed By: 04/14/23 0803 Normal [facility] ECG 12 lead ECGon 04-13-2023 ECG 12 lead ECG [facility] Main [address] [address] Electrocardiograph Report Signed Patient: Gurvinder Glass MR#: [id number] : 1980 Acct:[id number] Age/Sex: 42 / M ADM Date: 04/13/23 Loc: 4 Room: [address] [place] [address] Type: ADM IN Attending Dr: Yasemin Wilkinson MD Ordering Provider: Ramos Pappas MD Date of Service: 04/13/23 ECG/ECG 12 lead ECG: chest pain Copies to: Test Reason : Blood Pressure : / mmHG Vent. Rate : 073 BPM Atrial Rate : 073 BPM P-R Int : 164 ms QRS Dur : 092 ms QT Int : 398 ms P-R-T Axes : 012 086 010 degrees QTc Int : 438 ms Normal sinus rhythm Normal ECG No previous ECGs available Confirmed by MICHELLE PHILLIPS [facility] ([id number]) on 04/14/2023 3:13:13 PM Referred By: COCO Electronically Signed By:BETO MARTINEZ MD [facility] Transcribed By: MUS Signed By Chris Martinez MD 04/14/23 1513 Normal [facility] INR in Platelet poor plasma by Coagulation assayOrdered By: Ramos Pappas on 04-13-2023 INR Coag (PPP) [Relative time] 1.0 {INR} [facility] Comment on above: INR Therapeutic Rang e A) Pre- and Peroperative OAT started two weeks before surgery. NOT HIP SURGERY: 1.5 - 2.5 HIP SURGERY: 2 - 3B) Primary and secondary prevention of venous THROMBOSIS: 2 - 3C) Active venous thrombosis, pulmonary embolismand prevention of recurrent venous thrombosis: 2 - 3D) Prevention of arterial thromboembolismincluding patients with mechanical heart valves: 3 - 4.5 Prothrombin time (PT)Ordered By: Ramos Pappas on 04-13-2023 PT Coag (PPP) [Time] 11.2 s 9.0-12.9 [facility] Comment on above: A hematocrit value g reater than 55% may lead to inaccurate results in coagulation testing. Patients having hematocrit values >55% require a special collection tube for coagulation studies. Please contact the laboratory at [phone] for redraw instructions. Vital Signs Date Time Vital Sign Value Performing Clinician Rosalva bucio 01-09-2024 11:050 Body height 177.8 cm [facility] 01-09-2024 11:0500 Body mass index (BMI) [Ratio] 28.3 kg/m2 [facility] 01-09-2024 11:050 Body weight 89.35 kg [facility] 01-09-2024 11:21050 Diastolic blood pressure 76 mm[Hg] [facility] 01-09-2024 11:21050 Heart rate 70 /min [facility] 01-09-2024 11:21-0500 Respiratory rate 18 /min [facility] 01-09-2024 11:21-0500 SaO2% (BldA) [Mass fraction] 95 % [facility] 01-09-2024 11:21-0500 Systolic blood pressure 130 mm[Hg] [facility] 08-09-2023 10:53-0400 Body height 177.8 cm [facility] 08-09-2023 10:53-0400 Body mass index (BMI) [Ratio] 27.6 kg/m2 [facility] 08-09-2023 10:53-0400 Body weight 87.54 kg [facility] 08-09-2023 10:53-0400 Diastolic blood pressure 84 mm[Hg] [facility] 08-09-2023 10:53-0400 Heart rate 83 /min [facility] 08-09-2023 10:53-0400 Respiratory rate 18 /min [facility] 08-09-2023 10:53-0400 SaO2% (BldA) [Mass fraction] 98 % [facility] 08-09-2023 10:53-0400 Systolic blood pressure 120 mm[Hg] [facility] 04-15-2023 07:41-0500 Body temperature 97.2 [degF] PHYSICIAN NO [facility] 04-15-2023 07:41-0500 Diastolic blood pressure 77 mm[Hg] PHYSICIAN NO [facility] 04-15-2023 07:41-0500 Heart rate 63 /min PHYSICIAN NO [facility] 04-15-2023 07:41-0500 Respiratory rate 16 /min PHYSICIAN NO [facility] 04-15-2023 07:41-0500 SaO2% (BldA) [Mass fraction] 98 % PHYSICIAN NO [facility] 04-15-2023 07:41-0500 Systolic blood pressure 122 mm[Hg] PHYSICIAN NO [facility] 04-15-2023 06:00-0500 Body weight 88.2 kg PHYSICIAN NO [facility] 04-13-2023 21:03-0500 Body height 177.8 cm PHYSICIAN NO [facility] Encounters Encounter Date Encounter Type Care Provider Facility Start: 01-09-2024 End: 01-09-2024 ambulatory [facility] Work Phone: Start: 01-09-2024 End: 01-09-2024 Patient encounter procedure [facility] Work Phone: Start: 01-02-2024 End: 01-02-2024 Emergency department patient visit NO PCP NO PCP [facility] Start: 08-09-2023 End: 08-09-2023 ambulatory [facility] Work Phone: Start: 08-09-2023 End: 08-09-2023 Patient encounter procedure [facility] Work Phone: Start: 06-06-2023 End: 06-06-2023 Emergency department patient visit NO PCP NO PCP [facility] Start: 04-14-2023 Non-patient / Non-visit PHYSICIAN NO [facility] Physician [facility] Work Phone: Start: 04-14-2023 Non-patient / Non-visit PHYSICIAN NO [facility] Physician [facility] Work Phone: Start: 04-14-2023 Non-patient / Non-visit PHYSICIAN NO [facility] Physician [facility] Work Phone: Start: 04-13-2023 End: 04-15-2023 Evaluation and management of inpatient PHYSICIAN NO [facility] Facility:[facility] Start: 04-13-2023 End: 04-15-2023 Evaluation and management of inpatient PHYSICIAN NO [facility] [place] [facility] Work Phone: Start: 10-27-2020 End: 10-27-2020 ambulatory [facility] Facility:H1 Procedures Date Procedure Procedure Detail Performing Clinician Start: 04-14-2023 CL Closure Device Placement 0 PHYSICIAN NO FAMILY Start: 04-14-2023 CL Coronary Thrombolysis IV PHYSICIAN NO FAMILY Start: 04-14-2023 CL LHC & COR Angio PHYS ICIAN NO FAMILY Start: 04-14-2023 CL Stent 1st Vessel LAD MAYKEL PHYSICIAN NO FAMILY Start: 04-13-2023 Plain chest X-ray PHYSI BRENDA NO FAMILY Plan of Treatment Date Care Activity Detail Author Start: 04-15-2023 [facility] Start: 04-14-2023 Referral to cardiac rehabilitation program [facility] Start: 04-13-2023 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 [facility] Start: 04-13-2023 Hospital admission [facility] Start: 04-13-2023 Referral to cardiac rehabilitation program [facility] Start: 04-13-2023 [facility] Patient Education Guide to Eatin g When You Have Diabetes Blood Glucose Monitoring Type 2 Diabetes (DC) Low Salt Diet Carb counting for adults with diabetes Quitting smoking Treatment for type 2 diabetes Hemoglobin A1C tests Lowering Your Risk of Heart Disease Heart Disease in Diabetics Diabetes and diet Quitting Smoking ED [facility] Work Phone: Patient referral [facility] Work Phone: Referral to cardiac rehabilitation program [facility] Payers Date Payer Category Payer Unknown [id number] 1961 Self-pay Medicaid [facility] 102 [id number] Unknown [id number] Social History Date Type Detail Facility Start: 04-14-2023 Tobacco smoking stat us WAIS Smoker (finding) [facility] Start: 1980 Sex Assigned At Male F [facility] Start: 08-09-2023 End: 01-09-2024 Tobacco smoking status NHIS Ex-smoker (finding) [facility] Start: 01-09-2024 Sex Male (finding) [facility] Medical Equipment Procedure Code Equipment Code Equipment Origin al Text Equipment Identifier Dates CL CLOSURE DEVIC E ANGIOSEAL 6F FDA Start: 04-14-2023 CL STENT LENCHO FRONTIER 3.0 X 15 FDA Start: 04-14-2023 Lancets Start: 04-15-2023 CL CLOSURE DEVIC E ANGIOSEAL 6F FDA Start: 04-14-2023 CL STENT LENCHO FRONTIER 3.0 X 15 FDA Start: 04-14-2023 Lancets Start: 04-15-2023 CL CLOSURE DEVIC E ANGIOSEAL 6F FDA Start: 04-14-2023 CL STENT LENCHO FRONTIER 3.0 X 15 FDA Start: 04-14-2023 Blood Sugar Diagnostic strip Start: 04-15-2023 Lancets misc Start: 04-15-2023 Goals Date Patient Goal Desired Activity /State Functional Status Date Assessment Result Facility 04-15-2023 Functional status Patient at Baseline [facility] Work Phone: Mental Status Date Assessment Result Facility 04-15-2023 Cognitive function Cognitive Sta tus Patient at Baseline [facility] Work Phone: Progress note 04-15-2023 Note Date & Type Note Facility 04-15-2023 Progress note Note Date/Time April 15, 2023 8:53am [facility] [address] [place] [address] Cardiology Progress Note Signed Patient: Gurvinder Glass MR#: [id number] : 1980 Acct:[id number] Age/Sex: 42 / M Adm Date: 4 Loc: Room: [address] [place] [address] Type: ADM IN Attending Dr: Yasemin Wilkinson MD Copies to: ~ Date of Service: 04/15/2023 Subjective Interval history: No acute events. No complaints. Hemodynamically stable. Right radial and Right groin cath sites are both free of tenderness, swelling orsignificant ecchymosis. Exam Physical Exam Vital Signs: Temp Pulse Resp BP Pulse Ox O2 Del Method 97.2 F L 63 16 122/77 98 Room Air 04/15/23 07:41 04/15/23 07:41 04/15/23 07:41 04/15/23 07:41 04/15/23 07:41 04/15/23 07:42 Narrative: Physical Exam: General: NAD, A&Ox3, Cooperative HEENT: NC/AT, EOMI, Neck supple Lungs: Good air entry; No crackles/rhonchi/wheezes Heart: S1S2 normal, Regular rhythm, No murmurs/rubs/gallop, No JVD Extremities: No edema. Peripheral pulses 2+. Abdomen: Soft, non-tender, non-distended. Neuro: CN grossly intact, No focal deficits. Psych: Normal mood & affect. Objective Labs 04/15/23 05:11 04/15/23 05:11 Labs: Laboratory Results - last 24 hr 04/14/23 04/14/23 04/14/23 12:05 14:40 16:21 Corrected WBC Uncorrected WBC Count RBC Hgb Hct MCV MCH MCHC RDW Plt Count MPV Neut % (Auto) Lymph % (Auto) [place] % (Auto) Eos % (Auto) Baso % (Auto) Nucleat RBC Rel Count Neut # (Auto) Lymph # (Auto) [place] # (Auto) Eos # (Auto) Baso # (Auto) APTT 59.4 H PHA Creatinine Clear Sodium Potassium Chloride Carbon Dioxide Anion Gap BUN Creatinine Est GFR (CKD-EPI) Glucose Calcium Troponin I High Sens 21.7 H 19.5 17.6 Triglycerides Cholesterol LDL Cholesterol, Calc VLDL Cholesterol HDL Cholesterol Cholesterol/HDL Ratio 04/14/23 04/14/23 04/15/23 18:16 20:13 05:11 Corrected WBC 13.3 H Uncorrected WBC Count 13.3 H RBC 5.21 Hgb 16.2 Hct 46.6 MCV 89.4 MCH 31.1 MCHC 34.8 RDW 13.6 Plt Count 262 MPV 8.0 Neut % (Auto) 69.0 Lymph % (Auto) 22.3 [place] % (Auto) 7.1 Eos % (Auto) 0.7 Baso % (Auto) 0.9 Nucleat RBC Rel Count 0.0 Neut # (Auto) 9.2 H Lymph # (Auto) 3.0 [place] # (Auto) 0.9 H Eos # (Auto) 0.1 Baso # (Auto) 0.1 APTT PHA Creatinine Clear 135.19 Sodium 134 L Potassium 3.7 Chloride 103 Carbon Dioxide 25.1 Anion Gap 9.6 BUN 12 Creatinine 0.72 Est GFR (CKD-EPI) > 60.0 Glucose 205 H Calcium 8.7 Troponin I High Sens 16.3 16.4 27.7 H Triglycerides 413 H Cholesterol 274 H LDL Cholesterol, Calc TNP VLDL Cholesterol 82 HDL Cholesterol 33 Cholesterol/HDL Ratio 8.3 A&P - Cardiology (1) NSTEMI (non-ST elevated myocardial infarction): Code(s): I21.4 - Non-ST elevation (NSTEMI) myocardial infarction (2) Tobacco abuse: Code(s): Z72.0 - Tobacco use (3) Essential hypertension: Code(s): I10 - Essential (primary) hypertension (4) Type 2 diabetes mellitus: Code(s): E11.9 - Type 2 diabetes mellitus without complications (5) Mixed hyperlipidemia: Code(s): E78.2 - Mixed hyperlipidemia Plan # NSTEMI - Typical exertional angina with mildly elevated troponin. No ischemia on EKG. ANA LILIA 3. # Uncontrolled HTN and T2DM - Has not seen any physicians recently, nor taken any meds, due to insurance issues. # Mixed HLD # Tobacco abuse - 5 cigarettes daily, but previously smoked 2 packs/day x 10 years. Says he has quit this admission (03/2023) # Other: None. Lipid profile 03/25/23 - Tchol 265, LDL 143, HDL 29, Trig 464 Echo 04/14/23 - Moderate concentric left ventricular hypertrophy. EF 55-60%. Trace MR and TR. [facility] with PCI 04/14/23 - Mid LAD 80-90% stenosis with possible thrombus. Distal LM40% stenosis. Successful primary PCI mid LAD with 3 x 15 mm [place] Thorpe stent. - Off heparin gtt. - Continue ASA, Lipitor 80, NTG PRN, Lisinopril and Metoprolol succinate at discharge. 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 Then Plavix x 11 months. - Pending A1c. - He will establish with a PCP who will continue nicotine replacement therapy prescriptions. - Refer to Cardiac Rehab. - He may be discharged home today. Please call with any questions. Follow up with me in [facility] Cardiology in 1 month. Documented By: Ahsan Kramer MD 03/25 05/14 0862 Signed By: <Electronically signed by Ahsan Kramer MD> 04/15/23 0878 [facility] Work Phone: Consult note 04-14-2023 Note Date & Type Note Facility 04-14-2023 Consult note Note Date/Time April 14, 2023 2:24pm [facility] [address] [place] [address] Cardiology Consult Note Signed Patient: Gurvinder Glass MR#: [id number] : 1980 Acct:[id number] Age/Sex: 42 / M Adm Date: 4 Loc: Room: [address] [place] [address] Type: ADM IN Attending Dr: Yasemin Wilkinson MD Copies to: NO FAMILY PHYSICIAN Yasemin Wilkinson MD W Willie Mohamud, DO~ Cardiology HPI History of Present Illness Consult Date: 04/14/23 Reason for Consult: Acute non-ST elevation SD, single-vessel ASHD HPI: Mr. Glass is a 42 year old male seen in interventional cardiology consultation at the request of Dr. Munoz following urgent diagnostic catheterization today for non-ST elevation SD. Catheterization revealed mild 30to 40% distal left main disease that was nonobstructive, subtotal occlusion of the mid LAD with ruptured plaque and thrombus with ANA LILIA II flow. Cardiac markers, laboratories, and clinical case discussed with Dr. Munoz. Angiogramsreviewed. Plan at this time is proceed with primary PCI mid LAD Review of Systems Review of Systems All other systems reviewed & are negative unless noted below or in HPI Constitutional Constitutional: Reports as per HPI [facility] Medical History (Updated 04/14/23 @ 12:46 by Ahsan Kramer MD) Mixed hyperlipidemia Type 2 diabetes mellitus Essential hypertension Surgical History Status post right foot surgery Family History Mother Lung cancer Mother Diabetes Social History Smoking Status: Current every day smoker Tobacco Type: cigarettes Substance Use Type: None Meds Medications and Allergies Allergies No Known Allergies Allergy (Verified 04/13/23 22:33) Exam Physical Exam Vital Signs: Temp Pulse Resp BP Pulse Ox O2 Del Method 97.4 F L 56 L 14 120/79 96 Room Air 04/14/23 12:00 04/14/23 12:00 04/14/23 12:00 04/14/23 12:00 04/14/23 12:00 04/14/23 12:00 Const General: cooperative, comfortable and no acute distress Nutritional Appearance: average body habitus Orientation: alert (Sedated), awake and oriented x3 HEENT Head: normal to inspection Neck Neck: normal visual inspection Chest Chest palpation & inspection: normal inspection of the chest Resp Effort & Inspection: normal respiratory effort Auscultation: clear to auscultation bilaterally Cardio Palpation: normal PMI Rate: regular rate Rhythm: regular rhythm Heart Sounds: S1 normal, S2 normal and no murmurs Pulses: radial pulses present and femoral pulses present GI Palpation: soft Skin General: no rashes or lesions noted Neuro General: patient alert, patient awake and patient oriented x3 Cognition: normal cognition Speech: speech normal Extrem General: no clubbing, cyanosis or edema Results Labs 04/14/23 05:13 04/14/23 05:13 Lab results: Cardiac Enzymes 04/13/23 04/14/23 Range/Units 22:54 01:17 B-Natriuretic Peptide 18.0 18.0 (5-100) pg/mL Lipids 04/14/23 Range/Units 05:13 Triglycerides 464 H (0-149) mg/dL Cholesterol 265 H (140-200) mg/dL HDL Cholesterol 29 (23-92) mg/dL Cholesterol/HDL Ratio 9.1 (<5.0) CBC 04/13/23 04/14/23 Range/Units 22:54 05:13 RBC 5.45 5.19 (3.90-5.60) X10E6/uL Hgb 17.0 16.2 (13.0-17.0) g/dL Hct 48.7 46.3 (38.8-50.0) % Plt Count 270 247 (150-450) x10E3/uL Neut # (Auto) 5.6 4.3 (1.8-7.7) x10E3/uL Lymph # (Auto) 4.8 4.6 (1.00-4.8) x10E3/uL [place] # (Auto) 0.9 H 0.8 (0.0-0.8) x10E3/uL Eos # (Auto) 0.2 0.2 (0.0-0.45) x10E3/uL Baso # (Auto) 0.1 0.1 (0.0-0.2) x10E3/uL Comprehensive Metabolic Panel 04/13/23 04/14/23 Range/Units 22:54 05:13 Sodium 137 134 L (136-145) mmol/L Potassium 3.5 3.7 (3.5-5.1) mmol/L Chloride 98 101 (98-107) mmol/L Carbon Dioxide 28.0 25.3 (21.0-31.0) mmol/L BUN 9 10 (7-25) mg/dL Creatinine 0.78 0.83 (0.70-1.30) mg/dL Glucose 206 H 243 H (70-100) mg/dL Calcium 8.8 8.4 L (8.6-10.3) mg/dL Intake and Output 04/13/23 04/14/23 04/14/23 23:59 07:59 15:59 Intake Total 0 / 0 0 / 0 0 / 0 Output Total 0 / 0 Balance 0 / 0 0 / 0 0 / 0 Intake: Oral 0 / 0 0 / 0 0 / 0 Output: Urine 0 / 0 Other: # Unmeasured Voids 1 Weight 89.1 kg 86.6 kg Date of Last Bowel Movement 04/12/23 Patient Weight 04/14/23 23:59 Weight 86.6 kg Lab 04/13/23 04/14/23 04/14/23 22:54 05:13 12:05 PT 11.2 INR 1.0 APTT 31.0 34.8 59.4 H A&P - Cardiology (1) NSTEMI (non-ST elevated myocardial infarction): Code(s): I21.4 - Non-ST elevation (NSTEMI) myocardial infarction (2) Tobacco abuse: Code(s): Z72.0 - Tobacco use (3) Essential hypertension: Code(s): I10 - Essential (primary) hypertension (4) Type 2 diabetes mellitus: Code(s): E11.9 - Type 2 diabetes mellitus without complications (5) Mixed hyperlipidemia: Code(s): E78.2 - Mixed hyperlipidemia Plan Primary PCI mid LAD Documented By: Shayla Mohamud DO 04/14/23 1421 Signed By: <Electronically signed by Shayla Mohamud DO> 04/14/23 1424 [facility] Work Phone: Progress note 04-14-2023 Note Date & Type Note Facility 04-14-2023 Progress note Note Date/Time April 14, 2023 2:14pm [facility] [address] [place] [address] Hospitalist Progress Note Signed Patient: Gurvinder Glass MR#: [id number] : 1980 Acct:[id number] Age/Sex: 42 / M Adm Date: 4 Loc: Room: [address] [place] [address] Type: ADM IN Attending Dr: Yasemin Wilkinson MD Copies to: ~ Date of Service: 04/14/2023 Subjective Subjective Narrative: Patient has been seen and examined. Still has chest pain, refused nitroglycerin, on heparin drip EKG nonischemic, troponins flat Discussed with cardiology Physical exam: General -awake, alert, oriented ?3, not in acute distress Cardiovascular -S1 with S2, no murmurs, no rubs, no gallops Pulmonary - clear to auscultation bilaterally Gastrointestinal - abdomen is soft, nondistended, nontender, bowel sounds positive, there is no rigidity, no rebound Extremities -no edema Neurological -no focal neurological dysfunction noted Exam Physical Exam Vital Signs: Temp Pulse Resp BP Pulse Ox O2 Del Method 36.3 C L 56 L 14 120/79 96 Room Air 04/14/23 12:00 04/14/23 12:00 04/14/23 12:00 04/14/23 12:00 04/14/23 12:00 04/14/23 12:00 Objective Lab Results 04/14/23 05:13 04/14/23 05:13 Meds Allergies and Active Meds Allergies No Known Allergies Allergy (Verified 04/13/23 22:33) Active Meds: Active Medications Generic Name Dose Route Start Last Admin Trade Name Freq PRN Reason Stop Dose Admin Acetaminophen 1,000 mg 04/13/23 22:14 Acetaminophen 500 Mg Tablet PO 04/12/24 22:13 Q6H PRN Mild Pain Al Hydrox/Mg Hydrox/Simethicone 30 ml 04/13/23 22:14 Mag Hydrox/Al Hydrox/Simeth 30 Ml Udc PO 04/12/24 22:13 Q4H PRN Epigastric distress (Non-Card) Aspirin 325 mg 04/14/23 09:00 04/14/23 08:04 Aspirin 325 Mg Tablet PO 04/13/24 08:59 325 mg DAILY MONICA Administration Atorvastatin Calcium 80 mg 04/14/23 21:00 Atorvastatin 80 Mg Tablet PO 04/13/24 20:59 QPM MONICA Docusate Sodium 100 mg 04/13/23 22:14 Docusate 100 Mg Capsule PO 04/12/24 22:13 QHS PRN Constipation Heparin Sodium (Porcine) 3,600 unit 04/13/23 22:14 Heparin *Protocol Bolus* 5,000 Unit/Ml Vial 40 unit/kg (3600 unit) 04/12/24 22:13 IV-PUSH PROTOCOL PRN PTT 40-53 Heparin Sodium (Porcine) 4,000 unit 04/13/23 22:14 04/14/23 06:25 Heparin *Protocol Bolus* 5,000 Unit/Ml Vial IV-PUSH 04/12/24 22:13 4,000 unit PROTOCOL PRN Administration PTT < 40 Heparin Sodium/Sodium Chloride 25,000 unit in 250 mls @ 10 mls/hr 04/13/23 22:15 04/14/23 12:29 Heparin IV 04/12/24 22:14 0 units/hr .Q24H MONICA 0 mls/hr Titration Protocol 1,000 UNITS/HR Lisinopril 5 mg 04/15/23 09:00 Lisinopril 5 Mg Tablet PO 04/14/24 08:59 DAILY [facility] Metoprolol Tartrate 25 mg 04/13/23 22:20 04/14/23 08:04 Metoprolol Tartrate 25 Mg Tablet PO 04/12/24 22:19 25 mg BID MONICA Administration Morphine Sulfate 4 mg 04/13/23 22:14 04/14/23 00:18 Morphine Sulfate 4 Mg/Ml Cartridge IV-PUSH 2 mg Q20M PRN Administration Chest Pain Nitroglycerin 0.4 mg 04/13/23 22:14 04/13/23 23:15 Nitroglycerin 0.4 Mg Tab.Subl SUBLINGUAL 04/12/24 22:13 0.4 mg Q5M PRN Administration Chest Pain Ondansetron HCl 4 mg 04/13/23 22:14 Ondansetron 4 Mg/2 Ml Vial IV-PUSH 04/12/24 22:13 Q6H PRN Nausea And Vomiting Potassium Chloride 40 meq 04/14/23 13:01 Potassium Chloride Er 20 Meq Tab.Er.Prt PO 04/13/24 13:00 DAILY PRN Hypokalemia Sodium Chloride 0 ml 04/13/23 22:14 Sodium Chloride 0.9 % 10 Ml Syringe IV-PUSH 04/12/24 22:13 PRN PRN Flush Tramadol HCl 50 mg 04/13/23 22:14 Tramadol 50 Mg Tablet PO 10/10/23 22:13 Q6H PRN Moderate Pain Triamcinolone Acetonide 1 applic 04/13/23 22:14 Triamcinolone 0.1% Cream 15 Gm Tube TOPICAL 04/12/24 22:13 QID PRN Irritation A&P - Hospitalist Assessment/Plan (1) NSTEMI (non-ST elevated myocardial infarction): (2) Tobacco abuse: Plan 1. Non-ST elevation SD, EKG nonischemic, troponins slightly elevated but flat Echocardiogram preserved ejection fraction with LVH Appreciate cardiology input, plan for cardiac cath 2. Hyperlipidemia Hypertension Diabetes type 2 Documented By: Yasemin Wilkinson MD 04/14/23 1412 Signed By: <Electronically signed by Yasemin Wilkinson MD> 04/14/23 [facility] Work Phone: Consult note 04-14-2023 Note Date & Type Note Facility 04-14-2023 Consult note Note Date/Time April 14, 2023 12:42pm [facility] [address] [place] [address] Cardiology Consult Note Signed Patient: Gurvinder Glass MR#: [id number] : 1980 Acct:[id number] Age/Sex: 42 / M Adm Date: 4 Loc: Room: [address] [place] [address] Type: ADM IN Attending Dr: Yasemin Wilkinson MD Copies to: Ahsan Kramer MD NO FAMILY PHYSICIAN Yasemin Wilkinson MD~ Cardiology HPI History of Present Illness Consult Date: 04/14/23 HPI: Mr. Glass is a 42-year-old male with a past medical history below who was transferred to the [facility] from [place] due to chest pain. 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 He stopped his activity and rested which relieved the pain. The pain then recurred twice over the next 3 hours, all episodes due to exertion. He then called EMS who administered nitroglycerin, he does not remember if it helped, but gave him a terrible headache. On arrival at [place], he was hypertensive to the 160s, normal saturation and oxygenation, and EKG did not show ischemic changes. His troponinwas mildly elevated 30--64--92. He was then transferred to [facility] for cardiology review. He currently denies any chest pain. He denies any nausea, vomiting, diaphoresis, shortness of breath, orthopnea, leg swelling,fevers, syncope. He has no known CAD history. However he does have a history of type 2 diabetes which he has not been on medication for many months due to insurance issues. He also has a history of hypertension which she has not been on medications. He does not know of a history of cholesterol as he has not had any recent labs. He does smoke cigarettes around 5 cigarettes daily, but previously smoked 2 packs/day x 10 years. No family history of early CAD. Review of Systems Review of Systems All other systems reviewed & are negative unless noted below or in HPI [facility] Medical History (Updated 04/14/23 @ 12:46 by Ahsan Kramer MD) Mixed hyperlipidemia Type 2 diabetes mellitus Essential hypertension Surgical History Status post right foot surgery Family History Mother Lung cancer Mother Diabetes Social History Smoking Status: Current every day smoker Tobacco Type: cigarettes Substance Use Type: None Meds Medications and Allergies Allergies No Known Allergies Allergy (Verified 04/13/23 22:33) Exam Physical Exam Vital Signs: Temp Pulse Resp BP Pulse Ox O2 Del Method 97.4 F L 56 L 14 120/79 96 Room Air 04/14/23 12:00 04/14/23 12:00 04/14/23 12:00 04/14/23 12:00 04/14/23 12:00 04/14/23 12:00 Narrative: Physical Exam: General: NAD, A&Ox3, Cooperative HEENT: NC/AT, EOMI, Neck supple Lungs: Good air entry; No crackles/rhonchi/wheezes Heart: S1S2 normal, Regular rhythm, No murmurs/rubs/gallop, No JVD Extremities: No edema. Peripheral pulses 2+. Abdomen: Soft, non-tender, non-distended. Neuro: CN grossly intact, No focal deficits. Psych: Normal mood & affect. ANA LILIA Risk Score ANA LILIA Risk Score Predictor Historical: 3 or more Risk Factors: FHx,HTN,elevated cholesterol,DM,active smoker Presentation: Recent (>/=24hr) Angina and Increased Cardiac Marker Score Risk Score (0-7): 3 Results Labs 04/14/23 05:13 04/14/23 05:13 Lab results: Cardiac Enzymes 04/13/23 04/14/23 Range/Units 22:54 01:17 B-Natriuretic Peptide 18.0 18.0 (5-100) pg/mL Lipids 04/14/23 Range/Units 05:13 Triglycerides 464 H (0-149) mg/dL Cholesterol 265 H (140-200) mg/dL HDL Cholesterol 29 (23-92) mg/dL Cholesterol/HDL Ratio 9.1 (<5.0) CBC 04/13/23 04/14/23 Range/Units 22:54 05:13 RBC 5.45 5.19 (3.90-5.60) X10E6/uL Hgb 17.0 16.2 (13.0-17.0) g/dL Hct 48.7 46.3 (38.8-50.0) % Plt Count 270 247 (150-450) x10E3/uL Neut # (Auto) 5.6 4.3 (1.8-7.7) x10E3/uL Lymph # (Auto) 4.8 4.6 (1.00-4.8) x10E3/uL [place] # (Auto) 0.9 H 0.8 (0.0-0.8) x10E3/uL Eos # (Auto) 0.2 0.2 (0.0-0.45) x10E3/uL Baso # (Auto) 0.1 0.1 (0.0-0.2) x10E3/uL Comprehensive Metabolic Panel 04/13/23 04/14/23 Range/Units 22:54 05:13 Sodium 137 134 L (136-145) mmol/L Potassium 3.5 3.7 (3.5-5.1) mmol/L Chloride 98 101 (98-107) mmol/L Carbon Dioxide 28.0 25.3 (21.0-31.0) mmol/L BUN 9 10 (7-25) mg/dL Creatinine 0.78 0.83 (0.70-1.30) mg/dL Glucose 206 H 243 H (70-100) mg/dL Calcium 8.8 8.4 L (8.6-10.3) mg/dL Intake and Output 04/13/23 04/14/23 04/14/23 22:59 06:59 14:59 Intake Total 0 / 0 0 / 0 Output Total 0 / 0 Balance 0 / 0 0 / 0 Intake: Oral 0 / 0 0 / 0 Output: Urine 0 / 0 Other: Weight 89.1 kg 86.6 kg Date of Last Bowel Movement 04/12/23 04/12/23 Lab 04/13/23 04/14/23 22:54 05:13 PT 11.2 INR 1.0 APTT 31.0 34.8 A&P - Cardiology (1) NSTEMI (non-ST elevated myocardial infarction): Code(s): I21.4 - Non-ST elevation (NSTEMI) myocardial infarction (2) Tobacco abuse: Code(s): Z72.0 - Tobacco use (3) Essential hypertension: Code(s): I10 - Essential (primary) hypertension (4) Type 2 diabetes mellitus: Code(s): E11.9 - Type 2 diabetes mellitus without complications (5) Mixed hyperlipidemia: Code(s): E78.2 - Mixed hyperlipidemia Plan # NSTEMI - Typical exertional angina with mildly elevated troponin. No ischemia on EKG. ANA LILIA 3. # Uncontrolled HTN and T2DM - Has not seen any physicians recently, nor taken any meds, due to insurance issues. # Mixed HLD # Tobacco abuse - 5 cigarettes daily, but previously smoked 2 packs/day x 10 years. # Other: None. Lipid profile 03/25/23 - Tchol 265, LDL 143, HDL 29, Trig 464 - NPO. Plan for [facility] today. - Heparin gtt. - Get Echo, and A1c. - Cont ASA, Lipitor, Metoprolol, NTG prn. Add ACEi from tomorrow morning. Add P2Y12 after LHC. Documented By: Ahsan Kramer MD 03/25 04/16 1241 Signed By: <Electronically signed by Ahsan Kramer MD> 04/14/23 1247 [facility] Work Phone: Procedure note 04-14-2023 Note Date & Type Note Facility 04-14-2023 Procedure note [facility] Procedure note 04-14-2023 Note Date & Type Note Facility 04-14-2023 Procedure note [facility] History and physical note 04-14-2023 Note Date & Type Note Facility 04-14-2023 History and physical note Note Date/Time April 14, 2023 4:54am [facility] [address] [place] [address] Hospitalist H&P Signed Patient: Gurvinder Glass MR#: [id number] : 1980 Acct:[id number] Age/Sex: 42 / M Adm Date: 4 Loc: Room: [address] [place] [address] Type: ADM IN Attending Dr: Ramos Pappas MD Copies to: Ramos Pappas MD NO FAMILY PHYSICIAN~ HPI DATE OF EXAMINATION: 04/13/23 CHIEF COMPLAINT: chest pain HISTORY OF PRESENT ILLNESS: 42 year old man with history of tobacco abuse who presented to [place] ED complaining of chest pain starting earlier on the date of presentation. 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 pain caused the patient to writhe on the ground for about 5 minutes then resolved spontaneously. Pt had two very similar episodes in the next 2-3 hours- squad was activated and pt was brought to [facility] ED for evaluation. On arrival to [facility] ED vitals were as follows: T 97.7 P 81 R 20 BP 168/93 SaO2 97% on RA. symptoms resolved en route to the ED. ECG on arrival to the EDwas without ischemic change. initial troponin was 30 -> 64 -> 92. PT was given ASA, heparin bolus and gtt and is admitted for further evaluation and mgmt Pt has had no further episodes of chest pain since his arrival here. PMHx: none PSHx: right foot surgery SHx: +tobacco use 5 cigarettes daily FHx: negative for premature CVD ROS: 10 systems reviewed and were negative except as noted in the [facility] Surgical History Status post right foot surgery Family History Mother Lung cancer Mother Diabetes Social History Smoking Status: Current every day smoker Tobacco Type: cigarettes Substance Use Type: None Meds Medications and Allergies Allergies No Known Allergies Allergy (Verified 04/13/23 22:33) Exam Physical Exam Vital Signs: Temp Pulse Resp BP Pulse Ox O2 Del Method 97.7 F 65 18 126/80 97 Room Air 04/13/23 21:03 04/14/23 01:00 04/14/23 01:00 04/14/23 01:00 04/14/23 01:00 04/14/23 01:00 Const General: cooperative, comfortable and no acute distress Nutritional Appearance: well nourished Orientation: alert, awake and oriented x3 HEENT Head: normal to inspection, normocephalic and atraumatic Ears: hearing grossly normal bilaterally and external ears normal Nose: external nose normal and nares normal Face and sinus: normal facial exam and face symmetric Mouth: oral mucosae normal Eyes General: appearance normal, both eyes and all related structures Conjunctivae: conjunctivae normal Sclera: sclerae normal Pupils: PERRL EOM: EOM intact bilaterally Neck Neck: normal visual inspection, full ROM and no lymphadenopathy Chest Chest palpation & inspection: normal inspection of the chest Resp Effort & Inspection: able to speak in complete sentences and symmetric chest movement Auscultation: clear to auscultation bilaterally Cardio Rate: regular rate Rhythm: regular rhythm Heart Sounds: S1 normal and S2 normal Pulses: radial pulses present and dorsalis pedis present GI Palpation: soft Percussion: normal to percussion Auscultation: normal bowel sounds Skin General: no rashes or lesions noted Neuro General: patient alert, patient awake, patient oriented x3, no focal motor deficits and CN's II-XI intact bilaterally Extrem General: normal to inspection and capillary refill normal Psych Appearance: grossly normal Mental Status: mental status grossly normal Affect: normal affect Speech and Movement: speech and movement normal Attitude: cooperative ANA LILIA Risk Score ANA LILIA Risk Score Predictor Presentation: Recent (>/=24hr) Angina and Increased Cardiac Marker Score Risk Score (0-7): 2 Results Lab Results Labs: Laboratory Last Values Corrected WBC 11.6 X10E3/uL (4.1-10.5) H 04/13/23 22:54 Uncorrected WBC Count 11.6 x10E3/uL (4.1-10.5) H 04/13/23 22:54 RBC 5.45 X10E6/uL (3.90-5.60) 04/13/23 22:54 Hgb 17.0 g/dL (13.0-17.0) 04/13/23 22:54 Hct 48.7 % (38.8-50.0) 04/13/23 22:54 MCV 89.4 fl (83.5-101) 04/13/23 22:54 MCH 31.1 pg (27.5-35.2) 04/13/23 22:54 MCHC 34.8 g/dL (32.5-35.6) 04/13/23 22:54 RDW 13.9 % (12.0-14.8) 04/13/23 22:54 Plt Count 270 x10E3/uL (150-450) 04/13/23 22:54 MPV 7.9 fl (6.6-10.1) 04/13/23 22:54 Neut % (Auto) 48.4 % (.) 04/13/23 22:54 Lymph % (Auto) 41.3 % (.) 04/13/23 22:54 [place] % (Auto) 8.0 % (.) 04/13/23 22:54 Eos % (Auto) 1.4 % (.) 04/13/23 22:54 Baso % (Auto) 0.9 % (.) 04/13/23 22:54 Nucleat RBC Rel Count 0.4 /100 WBC (0-0.5) 04/13/23 22:54 Neut # (Auto) 5.6 x10E3/uL (1.8-7.7) 04/13/23 22:54 Lymph # (Auto) 4.8 x10E3/uL (1.00-4.8) 04/13/23 22:54 [place] # (Auto) 0.9 x10E3/uL (0.0-0.8) H 04/13/23 22:54 Eos # (Auto) 0.2 x10E3/uL (0.0-0.45) 04/13/23 22:54 Baso # (Auto) 0.1 x10E3/uL (0.0-0.2) 04/13/23 22:54 PT 11.2 Seconds (9.0-12.9) 04/13/23 22:54 INR 1.0 04/13/23 22:54 APTT 31.0 Seconds (25.1-36.5) 04/13/23 22:54 PHA Creatinine Clear 135.79 04/13/23 22:54 Sodium 137 mmol/L (136-145) 04/13/23 22:54 Potassium 3.5 mmol/L (3.5-5.1) 04/13/23 22:54 Chloride 98 mmol/L (98-107) 04/13/23 22:54 Carbon Dioxide 28.0 mmol/L (21.0-31.0) 04/13/23 22:54 Anion Gap 14.5 mEq/L (6.0-15.0) 04/13/23 22:54 BUN 9 mg/dL (7-25) 04/13/23 22:54 Creatinine 0.78 mg/dL (0.70-1.30) 04/13/23 22:54 Est GFR (CKD-EPI) > 60.0 mL/Min 04/13/23 22:54 Glucose 206 mg/dL (70-100) H 04/13/23 22:54 Calcium 8.8 mg/dL (8.6-10.3) 04/13/23 22:54 Troponin I High Sens 29.4 pg/mL (0.0-20.0) H 04/13/23 22:54 B-Natriuretic Peptide 18.0 pg/mL (5-100) 04/14/23 01:17 Assessment & Plan Assessment/Plan (1) NSTEMI (non-ST elevated myocardial infarction): (2) Tobacco abuse: Plan - admit to medicine - monitor on telemetry - serial cardiac enzymes/ECGs - pt to report recurrence of symptoms to staff immediately - ASA, statin, beta almaz - continue heparin gtt - NTG, morphine for pain - check lipids - consult cardiology in am - NPO after midnight for possible cath - urged cessation of tobacco use, offered nicotine replacement VTE prophylaxis- already on heparin gtt IP vs OBS Justification Based on differential dx, clinical care plan, and risk of adverse events, if untreated, in my clinical judgement this patient requires an acute care setting as: INPATIENT because of an expectation of an over 2 midnight stay. Estimated length of stay (# of days): 3 Documented By: Ramos Pappas MD 04/14/23 0441 Signed By: <Electronically signed by Ramos Pappas MD> 04/14/23 8086 [facility] Work Phone: Evaluation note Note Date & Type Note Facility Evaluation note Diagnosis Onset Date Essential hypertension acute Mixed hyperlipidemia acute NSTEMI (non-ST elevated myoc ardial infarction) acute Tobacco abuse acute Type 2 diabetes mellitus acu te [facility] Work Phone: Evaluation note Note Date & Type Note Facility Evaluation note No assessment information availa ble [facility] Work Phone: Evaluation note Note Date & Type Note Facility Evaluation note Diagnosis Onset Date Resolution Coronary artery disease involving [place] coronary artery of [place] acute January 08, 024 11:03am Essential hypertension acute No vember 2023 11:03am Mixed hyperlipidemia acute Nove mb 2023 11:03am S/P PTCA (percutaneous transluminal coronary angioplasty) acute January 08 11:03am Type 2 diabetes mellitus acute January 09, 2024 11:03am [facility] Work Phone: Summary Purpose Family History Relationship Condition Age at Onset Recorded Date/T ady Not Specified Malignant neoplasm of lung Unknown Not Specified Diabetes mellitus Unknown Relationship Condition Age at Onset Recorded Date/T ady Not Specified Malignant neoplasm of lung Unknown father Heart disease Unknown History of percutane ous transluminal coronary angioplasty Unknown Relationship Condition Age at Onset Recorded Date/T ady mother Malignant neoplasm of lung Unknown father Heart disease Unknown History of percutane ous transluminal coronary angioplasty Unknown Advance Directives Advance Directive Response Recorded Date/ Time Advance Directives No March 5:14pm Advance Directive Response Recorded Date/ Time Advance Directives No March 6:14pm Chief Complaint and Reason for Visit Chief Complaint NSTEMI NSTEMI NSTEMI NSTEMI Reason for Visit Essential hypertensi on Mixed hyperlipidemia NSTEMI (non-ST elevated myocardial infarction) Tobacco abuse Type 2 diabetes mellitus Chief Complaint 4 Months Reason for Visit Admit Date Coronary artery disease invo lving [place] coronary artery of [place] heart [place] January 09, 2024 11:03am Essential hypertension January 08 11:03am Mixed hyperlipidemia January 09, 2024 11:03am S/P PTCA (percutaneous transluminal claire nary angioplasty) January 09, 2024 11:03am Type 2 diabetes mellitus January 09, 2024 11:03am Additional Source Comments (unrecognized sect ion and content) No Status Records FoundNo Status Records FoundNo Status Records Found INFORMATION SOURCE (unrecogn ized section and content) DATE CREATED AUTHOR 10/31/2020 [facility] DATE CREATED AUTHOR AUTHOR'S ORGANIZ ATION 07/09/2023 [facility] DATE CREATED AUTHOR AUTHOR'S ORGANIZ ATION 01/04/2024 [facility] Care Teams (unrecognized sec tion and content) Team Status: Active Member Role Status Dates PHYSICIAN NO FAMILY Primary Care Provider Active Team Status: Inactive Member Role Status Dates PHYSICIAN NO FAMILY Primary Care Provider Active Start: April 13, 2023 End: April 15, 2023 Ramos Pappas MD Admit Provider Active S tart: April 13, 2023 End: April 15, 2023 Ahsan Kramer MD Other Provider Active Start: April 13, 2023 End: April 15, 2023 Yasemin Wilkinson MD Attending Provider Active S tart: April 13, 2023 End: April 15, 2023 Team Status: Active Member Role Status Dates PHYSICIAN NO FAMILY Primary Care Provider Active Start: April 14, 2023 Ramos Pappas MD Admit Provider, Attending Provider, Other Provider Active Start: April 14, 2023 Ahsan Kramer MD Other Provider Active Start: March Team Status: Active Member Role Status Dates PHYSICIAN NO FAMILY Primary Care Provider Active Start: April 14, 2023 Ramos Pappas MD Admit Provider Active S tart: April 14, 2023 Ahsan Kramer MD Attending Provider, Other Provider Active Start: April 14, 2023 Yasemin Wilkinson MD Other Provider Active Start : April 14, 2023 Team Status: Active Member Role Status Dates PHYSICIAN NO FAMILY Primary Care Provider Active Start: April 14, 2023 Ramos Pappas MD Admit Provider Active S tart: April 14, 2023 Ahsan Kramer MD Other Provider Active Start: March Yasemin Wilkinson MD Attending Provider, Other Provider Active Start: April 14, 2023 Team Status: Inactive Member Role Status Dates PHYSICIAN NO FAMILY Primary Care Provider Active Start: August 09, 2023 End: August 09, 2023 Ahsan Kramer MD Attending Provider Activ e Start: August 09, 2023 End: August 09, 2023 Team Status: Active Member Role Status Dates Ahsan Kramer MD Public Health Technician Active PHYSICIAN NO FAMILY Primary Care Provider Active Team Status: Inactive Member Role Status Dates PHYSICIAN NO FAMILY Primary Care Provider Active Start: January 09, 2024 End: January 09, 2024 Ahsan Kramer MD Attending Provider Activ e Start: January 09, 2024 End: January 09, 2024 Goals (unrecognized section and content) Goals may be documented in a n alternate sectionGoals may be documented in an alternate section FOR RECORDS PERTAINING TO PATIENTS WHO ARE OR HAVE BEEN ENROLLED IN A CHEMICAL DEPENDENCY/SUBSTANCEABUSE PROGRAM, SOME INFORMATION MAY BE OMITTED. This clinical summary was aggregated from multiple sources. Caution should be exercised in using it in the provision of clinical care. This summary normalizes information from multiple sources, and as a consequence, information in this document may materially change the coding, format and clinical context of patient data. In addition, data may be omitted in some cases. CLINICAL DECISIONS SHOULD BE BASED ON THE PRIMARY CLINICAL RECORDS. [employer] provides no warranty or guarantee of the accuracy or completeness of information in this document.
--- NOTE | 2024-04-10 14:48 | ED_ITS ---
HPI HPI - Extremity Injury (Upper) General Chief Complaint: Extremity Injury, Upper Stated Complaint: upper extremity injury Time Seen by Provider: 04/10/24 13:07 Source: patient Mode of arrival: walk-in Limitations: no limitations History of Present Illness HPI narrative: 43-year-old male to the emergency department with chief complaint of left elbow pain. Patient reports that he took his dog out this morning and the dog jerked the leash and he slipped on some ice and fell onto his left elbow. Did not hit his head. Denies any neck or back pain. No other injuries. He reports pain in his left elbow that radiates up to his shoulder. 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 Related Data Previous Rx's ?Medication ?Instructions ?Recorded naproxen 500 mg tablet 500 mg PO BID PRN pain #14 tabs 04/10/24 oxycodone-acetaminophen 5 mg-325 1 tab PO Q6H PRN pain #8 tabs 04/10/24 mg tablet (Percocet) Allergies Allergy/AdvReac Type Severity Reaction Status Date / Time No Known Drug Allergies Allergy Verified 04/13/23 13:27 Opioid HPI Opioid Management Most Recent Pain and Opioid Data: Last Pain Scale 8 08/08/23 09:54 08/08/23 Review of Systems ROS Status of ROS 10 or more systems reviewed and unremark able except as noted in history and below PFSH PFSH Social History Smoking status: Current every day smoker Little interest or pleasure in doing things: not at all Feeling down, depressed, or hopeless: not at all Exam Narrative Exam Narrative: VITALS: I have reviewed the triage vital signs. GENERAL: Well developed, well appearing adult in no acute distress. NEURO: Alert and oriented. Moves all extremities. Face is symmetric and expressive. EYES: PERRL. No scleral icterus or conjunctival injection. No discharge. HENT: Normocephalic, atraumatic. Hearing is grossly intact. Nares grossly patent and without discharge. Mucous membranes moist. NECK: No JVD. Patient moves neck without restriction. No midline cervical tenderness. Left upper extremity: Radial pulse intact. No deformity. There is no wrist tenderness. There is no forearm tenderness. He has some generalized tenderness about the olecranon. Mild soft tissue edema over the olecranon. no radial head tenderness. He has full range of motion of the elbow. No bony humerus tenderness. Normal range of motion of the shoulder. Compartments are soft. No lacerations. SKIN: Warm and dry. Normal turgor. No rash or lesions appreciated. PSYCH: Mood, affect, and interaction is appropriate to the setting. Constitutional Vital Signs, click to edit/add: Last Vital Signs Temp 97.8 F 04/10/24 10:46 Pulse 64 04/10/24 10:46 Resp 18 04/10/24 10:46 BP 151/82 H 04/10/24 10:46 Pulse Ox 98 04/10/24 10:46 Course Vital Signs Vital signs: Vital Signs Temperature 97.8 F 04/10/24 10:46 Pulse Rate 64 04/10/24 10:46 Respiratory Rate 18 04/10/24 10:46 Blood Pressure 151/82 H 04/10/24 10:46 Pulse Oximetry 98 04/10/24 10:46 Temperature 97.8 F 04/10/24 10:46 Pulse Rate 64 04/10/24 10:46 Respiratory Rate 18 04/10/24 10:46 Blood Pressure 151/82 H 04/10/24 10:46 Pulse Oximetry 98 04/10/24 10:46 MDM - Extremity Injury (Upper) MDM Narrative Medical decision making narrative: 43-year-old male to the emergency department chief plaint of injury to his left elbow. He reports that he fell onto the elbow after slipping on the ice while walking his dog. Vital stable, the patient is afebrile. The left upper extremity is neurovascularly intact. He is complaining of pain rating up from his elbow to his shoulder triage nurse ordered an elbow, humerus as well as shoulder. X-ray imaging without any acute findings. Discussed rest, ice, compression, elevation. NSAIDs and short course of Percocet for breakthrough pain. He is given a work note. Return precautions were discussed. Orthopedic referral if not improving. All questions were answered. The patient was discharged home. Imaging Data Upper extremity x-rays: Attestation: I have reviewed the pertinent imaging results. Discharge Plan Discharge Chief Complaint: Extremity Injury, Upper Clinical Impression: Elbow pain, left Patient Disposition: Home, Self-Care Time of Disposition Decision: 13:15 Mode of Transportation: Private Vehicle Prescriptions / Home Meds: New naproxen 500 mg tablet 500 mg PO BID PRN (Reason: pain) Qty: 14 0RF oxycodone-acetaminophen [Percocet] 5-325 mg tablet 1 tab PO Q6H PRN (Reason: pain) Qty: 8 0RF Print Language: Faroese Instructions: Arm Pain (ED) Additional Instructions: Call the office of your primary care doctor to arrange for follow-up within the above-stated timeframe. Your ED visit was focused on your acute issue and does not replace primary care. You should review your labs, imaging, and diagnoses from this ED visit with your primary care physician. There may be non-emergent/ incidental findings that need further evaluation. You should review your vital signs including blood pressure with your PCP. If you were prescribed medications you should discuss possible side-effects and drug interactions with your pharmacist. Call 911 or go to the nearest Emergency Department if you develop any new or worsening symptoms. Referrals: [facility] [Primary Care Provider] - 1 week Ayaz Dunham MD [Physician] - 1 week Discharge Date/Time: 04/10/24 13:31
== END 2024-04-10 13:31 | disposition home or self-care (01) ==
PROVIDERS: Emergency Provider Student in an Organized Health Care Education/Training Program
DX: M25.522 Pain in left elbow (principal); F17.200 Nicotine dependence, unspecified, uncomplicated
CPT/HCPCS: 73030; 73060; 73070; 73080; 99283